=== PATIENT | male | born 1955 | race Caucasian/White ===

== ENCOUNTER 2018-10-25 13:35 | Emergency (ER) | payer BC, OTHER ==
[2018-10-25 16:55] LABS: Absolute Lymphocytes (CBC) 1.8 K/uL (0.7-4.9); Absolute Monocytes 0.8 K/uL (0.1-1.3); Absolute Neutrophil 4.5 K/uL (1.8-8.0); Basophils % 0.6 % (0-1.3); Hematocrit 43.2 % (39.6-49.0); Lymphocytes % 24.3 % (15.3-44.8); MPV 9.8 fL (7.6-11.3); Monocytes % 10.4 % (3.3-12.3); RBC Red Blood Cell Count 4.89 M/uL (4.33-5.43)
[2018-10-25] MEDS ORDERED: KETOROLAC 30 MG/ML INJ ONE (17:18)
[2018-10-25 17:53] LABS: Albumin 3.9 g/dL (3.4-5.0); Bilirubin Direct 0.2 mg/dL (0-0.2); Bilirubin Total 0.6 mg/dL (0.2-1.0); Potassium 4.4 mmol/L (3.5-5.1)
--- NOTE | 2018-10-25 18:22 | RAD REPORT ---
EXAM DESCRIPTION: CT - Abdomen Pelvis W Contrast - 10/25/2018 6:04 pm CLINICAL HISTORY: Abdominal pain/right groin pain COMPARISON: none. TECHNIQUE: Computed axial tomography of the abdomen pelvis was obtained. 100 cc Isovue-300 was admin istered intravenously. Oral contrast was not requested which limits evaluation of bowel. All CT scans are performed using dose optimization technique as appropriate and may include automated exposure control or mA/KV adjustment according to patient size. FINDINGS: The liver, spleen, pancreas, adrenal and right kidney appear unremarkable. 6 millimeter nonobstructing left renal calculus is present. Gallstones are seen without gallbladder wall thickening. There is no evidence of diverticulitis. The appendix is normal. The prostate gland is moderately to markedly enlarged. Small bilateral inguinal hernias are suspected. Significant inguinal lymphadenopathy is not present IMPRESSION: Cholelithiasis without evidence of cholecystitis Nonobstructing left renal calculus [id number] prostatic hypertrophy. Small bilateral inguinal hernias are suspected
--- NOTE | 2018-10-25 18:44 | ER ---
Nurse's Notes [facility] Name: Jamar Pedersen Age: 63 yrs Sex: Male : 1955 Arrival Date: 10/25/2018 Time: 13:39 Bed 26 Private MD: Jamar Stevens T Diagnosis: Bilateral inguinal hernia, without obstruction or gangrene Presentation: 10/25 13:48 Presenting complaint: Patient states: Right thigh pain and swelling to the right groin, sg was seen by the PCP for evaluation of Hernia, diagnosed with inflammed lymph nodes, reports the medications have done nothing, reports swelling continues and pain continues. Transition of care: patient was not received from another setting of care. Onset of symptoms was October 25, 2018 at 13:49. Risk Assessment: Do you want to hurt yourself or someone else? Patient reports no desire to harm self or others. Initial Sepsis Screen: Does the patient meet any 2 criteria? No. Patient's initial sepsis screen is negative. Does the patient have a suspected source of infection? No. Patient's initial sepsis screen is negative. Care prior to arrival: None. 13:48 Method Of Arrival: Ambulatory sg 13:48 Acuity: ISABEL 3 sg Historical: - Allergies: 13:53 Codeine; sg - Home Meds: 13:53 losartan oral oral [Active]; meloxicam 15 mg oral tab 1 tab once daily [Active]; sg doxycycline hyclate 100 mg Oral cap 1 cap every 12 hours [Active]; - PMHx: 13:53 Hypertension; BPH; sg - Immunization history:: Adult Immunizations up to date. - Social history:: Smoking status: Patient/guardian denies using tobacco. - Ebola Screening: : Patient negative for fever greater than or equal to 101.5 degrees Fahrenheit, and additional compatible Ebola Virus Disease symptoms Patient denies exposure to infectious person Patient denies travel to an Ebola-affected area in the 21 days before illness onset No symptoms or risks identified at this time. Screenin:44 Abuse screen: Denies threats or abuse. Nutritional screening: No deficits noted. tl3 Tuberculosis screening: No symptoms or risk factors identified. Fall Risk None identified. Assessment: 15:40 Reassessment: Patient and/or family updated on plan of care and expected duration. Pain hb level reassessed. Patient is alert, oriented x 3, equal unlabored respirations, skin warm/dry/pink. Patient states symptoms have not improved. 15:44 General: Appears uncomfortable, well groomed, well developed, well nourished, Behavior tl3 is calm, cooperative, appropriate for age. Pain: Complains of pain in right groin. Neuro: Level of Consciousness is awake, alert, obeys commands, Oriented to person, place, time, situation, Appropriate for age. Cardiovascular: Patient's skin is warm and dry. Respiratory: Airway is patent Respiratory effort is even, unlabored, Respiratory pattern is regular, symmetrical. GI: No signs and/or symptoms were reported involving the gastrointestinal system. GI: No signs and/or symptoms were reported involving the gastrointestinal system. GI: No signs and/or symptoms were reported involving the gastrointestinal system. 17:25 Reassessment: Patient appears in no apparent distress at this time. Patient and/or ca1 family updated on plan of care and expected duration. Pain level reassessed. Patient is alert, oriented x 3, equal unlabored respirations, skin warm/dry/pink. 18:30 Reassessment: Patient appears in no apparent distress at this time. Patient is alert, ca1 oriented x 3, equal unlabored respirations, skin warm/dry/pink. DIANA Davis at bedside. Vital Signs: 13:50 BP 180 / 94; Pulse 71; Resp 17; Temp 98.1; Pulse Ox 100% on R/A; Weight 111.13 kg; Pain sg 10/10; 17:00 BP 160 / 97; Pulse 62; Resp 18; Pulse Ox 97% on R/A; ca1 18:30 BP 162 / 88; Pulse 63; Resp 18; Pulse Ox 96% on R/A; ca1 ED Course: 13:39 Patient arrived in ED. sb2 13:39 Jamar Stevens MD is Private Physician. sb2 13:49 Triage completed. sg 13:49 Arm band placed on. sg 15:42 Evan Campos PA is PHCP. cp 15:43 Jessica Johnson, EDGAR is Primary Nurse. tl3 15:43 Artur Hassan MD is Attending Physician. cp 15:44 Patient has correct armband on for positive identification. Bed in low position. Call tl3 light in reach. Side rails up X 1. Adult w/ patient. 15:44 No provider procedures requiring assistance completed. tl3 16:43 Inserted saline lock: 20 gauge in left antecubital area, using aseptic technique. lt1 16:43 Initial lab(s) drawn, by me, sent to lab. lt1 18:07 CT Abd/Pelvis - W/Contrast: no oral contrast In Process Unspecified. EDMS 18:43 Madi Duran MD is Referral Physician. cp 19:16 IV discontinued, intact, bleeding controlled, No redness/swelling at site. Pressure ca1 dressing applied. Administered Medications: 17:10 Drug: TORadol 30 mg Route: IVP; Site: left antecubital; ca1 18:44 Follow up: Response: No adverse reaction; Pain is decreased ca1 Outcome: 18:44 Discharge ordered by MD. cp 19:15 Discharged to home ambulatory, with family. ca1 19:15 Condition: stable 19:15 Discharge instructions given to patient, Instructed on discharge instructions, follow up and referral plans. medication usage, Demonstrated understanding of instructions, follow-up care, medications, Prescriptions given X 2. 19:16 Patient left the ED. ca1 Signatures: Dispatcher [employer] EDMS Ha Dietz, RN RN sg Evan Campos, PA PA cp Sonya Alan, RN RN Ana Parra sb2 Jessica Johnson RN RN tl3 Judith Cota RN RN ca1 Ivett Heredia lt1
--- NOTE | 2018-10-25 18:44 | EDPHYS ---
Physician Documentation [facility] Name: Jamar Pedersen Age: 63 yrs Sex: Male : 1955 Arrival Date: 10/25/2018 Time: 13:39 Bed 26 Private MD: Jamar Stevens T ED Physician Artur Hassan HPI: 10/25 16:20 This 63 yrs old Male presents to ER via Ambulatory with complaints of Groin cp Pain, Thigh Pain. 16:20 The patient presents with pain, that is acute, tenderness. The complaints affect the cp right groin and right inguinal. 16:20 Context: resulted from an unknown cause. cp 16:20 Onset: The symptoms/episode began/occurred gradually. The patient has been recently cp seen by a physician: the patient's primary care provider, with similar presenting complaints, was given a prescription for pain medications, was given a prescription for antibiotics. 16:20 Associated signs and symptoms: Pertinent negatives fever, urinary symptoms, testicular cp pain. Historical: - Allergies: 13:53 Codeine; sg - Home Meds: 13:53 losartan oral oral [Active]; meloxicam 15 mg oral tab 1 tab once daily [Active]; sg doxycycline hyclate 100 mg Oral cap 1 cap every 12 hours [Active]; - PMHx: 13:53 Hypertension; BPH; sg - Immunization history:: Adult Immunizations up to date. - Social history:: Smoking status: Patient/guardian denies using tobacco. - Ebola Screening: : Patient negative for fever greater than or equal to 101.5 degrees Fahrenheit, and additional compatible Ebola Virus Disease symptoms Patient denies exposure to infectious person Patient denies travel to an Ebola-affected area in the 21 days before illness onset No symptoms or risks identified at this time. ROS: 16:25 Constitutional: Negative for body aches, chills, fever, poor PO intake. cp 16:25 Eyes: Negative for injury, pain, redness, and discharge. cp 16:25 Cardiovascular: Negative for chest pain, edema, palpitations. 16:25 Respiratory: Negative for cough, shortness of breath, wheezing. 16:25 Abdomen/GI: Negative for abdominal pain, nausea, vomiting, and diarrhea, constipation, black/tarry stool, rectal pain, rectal bleeding. 16:25 : Positive for pain right groin and inguinal area, Negative for hematuria, flank pain, penile pain, testicular pain 16:25 Skin: Negative for cellulitis, rash. 16:25 Neuro: Negative for altered mental status, headache, weakness. 16:25 All other systems are negative. Exam: 16:33 Constitutional: The patient appears in no acute distress, alert, awake, non-toxic, well cp developed, well nourished. 16:33 Head/Face: Normocephalic, atraumatic. cp 16:33 Eyes: Periorbital structures: appear normal, Conjunctiva: normal, no exudate, no injection, Sclera: no appreciated abnormality, Lids and lashes: appear normal, bilaterally. 16:33 ENT: External ear(s): are unremarkable, Nose: is normal, Mouth: Lips: moist, Oral mucosa: pink and intact, moist, Posterior pharynx: Airway: no evidence of obstruction, patent. 16:33 Chest/axilla: Inspection: normal, Palpation: is normal, no crepitus, no tenderness. 16:33 Cardiovascular: Rate: normal, Rhythm: regular. 16:33 Respiratory: the patient does not display signs of respiratory distress, Respirations: normal, no use of accessory muscles, no retractions, no splinting, no tachypnea, labored breathing, is not present, Breath sounds: are clear throughout, no decreased breath sounds, no stridor, no wheezing. 16:33 Abdomen/GI: Inspection: obese Bowel sounds: active, all quadrants, Palpation: abdomen is soft and non-tender, in all quadrants, Hernia: noted in the right inguinal area, tenderness, that is mild. 16:33 Back: pain, is absent, ROM is normal. 16:33 : Male external genitalia: swelling, is not appreciated, tenderness, is not appreciated. 16:33 Skin: cellulitis, is not appreciated, no rash present. 16:33 Neuro: Orientation: to person, place \T\ time. Mentation: is normal, Cerebellar function: is grossly normal, Motor: moves all fours, strength is normal, Sensation: is normal. Vital Signs: 13:50 BP 180 / 94; Pulse 71; Resp 17; Temp 98.1; Pulse Ox 100% on R/A; Weight 111.13 kg; Pain sg 10/10; 17:00 BP 160 / 97; Pulse 62; Resp 18; Pulse Ox 97% on R/A; ca1 18:30 BP 162 / 88; Pulse 63; Resp 18; Pulse Ox 96% on R/A; ca1 MDM: 15:43 Patient medically screened. cp 17:00 Differential diagnosis: UTI, incarcerated hernia, appendicitis, epididymitis. cp 18:42 Data reviewed: vital signs, nurses notes, lab test result(s), radiologic studies, CT cp scan. 18:42 Counseling: I had a detailed discussion with the patient and/or guardian regarding: the cp historical points, exam findings, and any diagnostic results supporting the discharge/admit diagnosis, lab results, radiology results, the need for outpatient follow up, a general surgeon. Response to treatment: the patient's symptoms have mildly improved after treatment, and as a result, I will discharge patient. 10/25 16:17 Order name: Basic Metabolic Panel; Complete Time: 18:30 cp 10/25 18:30 Interpretation: Normal except: CL 111; BUN 20; GFR 81. cp 10/25 16:17 Order name: CBC with Diff; Complete Time: 17:31 cp 10/25 16:17 Order name: Creatinine for Radiology; Complete Time: 17:31 cp 10/25 16:17 Order name: Hepatic Function; Complete Time: 18:30 cp 10/25 16:17 Order name: Lipase; Complete Time: 18:30 cp 10/25 16:17 Order name: Urine Microscopic Only cp 10/25 16:17 Order name: IV Saline Lock; Complete Time: 17:24 cp 10/25 16:17 Order name: Labs collected and sent; Complete Time: 17:24 cp 10/25 16:28 Order name: CT Abd/Pelvis - W/Contrast: no oral contrast; Complete Time: 18:30 cp 10/25 16:28 Order name: Urine Dipstick-Ancillary (obtain specimen); Complete Time: 18:44 cp 10/25 16:57 Order name: Labs - recollect needed; Complete Time: 17:23 bd 10/25 18:36 Order name: Urine Dipstick--Ancillary (enter results) bd Administered Medications: 17:10 Drug: TORadol 30 mg Route: IVP; Site: left antecubital; ca1 18:44 Follow up: Response: No adverse reaction; Pain is decreased ca1 Disposition: 10/26 12:38 Co-signature as Attending Physician, Artur Hassan MD. rn Disposition: 10/25/18 18:44 Discharged to Home. Impression: Bilateral inguinal hernia, without obstruction or gangrene. - Condition is Stable. - Discharge Instructions: Inguinal Hernia, Adult. - Prescriptions for Ultracet 37.5- 325 mg Oral Tablet - take 1 tablet by ORAL route every 6 hours As needed - for up to 5 days; do not exceed 8 tablets per day.. no driving or operating heavy machinery while taking medication; 20 tablet. Cyclobenzaprine 10 mg Oral Tablet - take 1 tablet by ORAL route every 8 hours As needed no driving while taking medication; 20 tablet. - Medication Reconciliation Form, Thank You Letter, Antibiotic Education, Prescription Opioid Use form. - Follow up: Madi Duran MD; When: 1 - 2 days; Reason: bilateral inguinal hernias. - Problem is new. - Symptoms have improved. Signatures: Dispatcher [employer] EDMS Mariza Montoya Steven, RN RN Artur Kearney MD MD rn Evan Campos PA PA cp Judith Cota RN RN ca1 Corrections: (The following items were deleted from the chart) 10/25 19:16 18:44 10/25/2018 18:44 Discharged to Home. Impression: Bilateral inguinal hernia, ca1 without obstruction or gangrene. Condition is Stable. Forms are Medication Reconciliation Form, Thank You Letter, Antibiotic Education, Prescription Opioid Use. Follow up: Madi Duran; When: 1 - 2 days; Reason: bilateral inguinal hernias. Problem is new. Symptoms have improved. cp
[2018-10-25 18:51] LABS: Urine Bacteria <20 /HPF (NONE SEEN); Urine Culture Reflex Order NOT NEEDED; Urine Mucus 1+ /HPF (NONE SEEN); Urine RBC <5 /HPF (NONE SEEN)
[2018-10-25 21:24] LABS: Urine Blood NEGATIVE (NEG); Urine Glucose NEGATIVE (NEG); Urine Protein NEGATIVE (NEG); Urine Specific Gravity 1.025 (1.005-1.030); Urine pH 5.5 (5.0-7.0)
== END 2018-10-25 19:16 | disposition home or self-care (01) ==
LOC: ER 13:35
DX: K40.20 Bilateral inguinal hernia, without obstruction or gangrene, not specified as recurrent (principal); I10 Essential (primary) hypertension; Z88.5 Allergy status to narcotic agent
CPT/HCPCS: 36415; 74177; 80048; 80076; 81003; 81015; 83690; 85025; 96374; 99284; Q9967

== ENCOUNTER 2018-11-16 09:24 | Day surgery (SDC) | payer OTHER ==
--- NOTE | 2018-11-04 16:55 | EKG ---
Test Date: 2018-11-04 Test Time: 16:03:08 Lpn Home Health: [facility] MEASUREMENT RESULTS: Intervals: Rate: 72 HI: 190 QRSD: 146 QT: 404 QTc: 442 [place]: P: 16 HI: 190 QRS: 4 T: 0 INTERPRETIVE STATEMENTS: Normal sinus rhythm Right bundle branch block Inferior infarct, age undetermined Abnormal ECG No previous ECG available for comparison Electronically Signed On 11-04-18 16:54:36 SCRAPER LOADER OPERATOR by Salvador Walden
[2018-11-04 17:17] LABS: Absolute Monocytes 1.1 K/uL (0.1-1.3); Absolute Neutrophil 4.8 K/uL (1.8-8.0); Basophils % 0.3 % (0-1.3); Eosinophils % 4.4 % (0-4.4); Hematocrit 43.5 % (39.6-49.0); Lymphocytes % 24.3 % (15.3-44.8); MPV 10.4 fL (7.6-11.3); Monocytes % 13.1 % (3.3-12.3); RBC Red Blood Cell Count 4.92 M/uL (4.33-5.43)
[2018-11-04 17:18] LABS: Urine Appearance CLEAR; Urine Bilirubin NEGATIVE (NEG); Urine Blood NEGATIVE (NEG); Urine Color YELLOW; Urine Glucose NEGATIVE (NEG); Urine Protein NEGATIVE (NEG); Urine Specific Gravity 1.015 (1.005-1.030); Urine pH 5.5 (5.0-7.0)
[2018-11-04 17:19] LABS: Protime INR 1.11
[2018-11-04 17:29] LABS: Potassium 4.1 mmol/L (3.5-5.1)
[2018-11-04 17:30] LABS: Urine Microscopic Reflex ORDER UMIC
--- NOTE | 2018-11-04 17:38 | RAD REPORT ---
EXAM DESCRIPTION: Marnada Briggs (2 Views)11/04/2018 4:22 pm CLINICAL HISTORY: Preop COMPARISON: 2015 FINDINGS: The lungs appear clear of acute infiltrate. The heart is normal size IMPRESSION: No acute abnormalities displayed
[2018-11-04 17:50] LABS: Urine Bacteria <20 /HPF (NONE SEEN); Urine Culture Reflex Order NOT NEEDED; Urine Mucus MOD /HPF (NONE SEEN)
[2018-11-16] MEDS ORDERED: Ringers Lactate 1,000 ML IV ONE ×2 (10:11→12:49)
[2018-11-16] MEDS ORDERED: GENTAMICIN 100 MG/100 ML BAG 100 ML IV ONE (10:11)
[2018-11-16] MEDS ORDERED: CEFAZOLIN/SWI 1gm 1 GM/10 ML SYR ONE (10:15)
[2018-11-16] MEDS ORDERED: BUPIVACAINE 0.5% PF 10 ML VIAL ONE ×2 (10:19→11:33)
[2018-11-16] MEDS ORDERED: PROPOFOL 200 MG/20 ML VIAL IV ONE (10:26)
[2018-11-16] MEDS ORDERED: MIDAZOLAM HCL 2 MG/2 ML INJ ONE ×2 (10:26→14:12)
[2018-11-16] MEDS ORDERED: FENTANYL CITR 100 MCG/2 ML ONE ×2 (10:26→11:52)
[2018-11-16] MEDS ORDERED: LIDOCAINE 2% MPF 5 ML VIAL ONE (10:27)
[2018-11-16] MEDS ORDERED: ONDANSETRON 4 MG/2 ML VIAL ONE (10:27)
[2018-11-16] MEDS ORDERED: ROCURONIUM 50 MG/5 ML VIAL IV ONE ×2 (10:27→11:33)
[2018-11-16] MEDS ORDERED: GLYCOPYRROLATE 0.2 MG/ML SYR ONE (12:58)
[2018-11-16] MEDS ORDERED: NEOSTIGMINE 1 MG/ML -10 ML VIAL ONE (12:58)
[2018-11-16] MEDS: HYDROMORPHONE HCL 2 MG/ML inj ONE ×4 (13:07→13:32)
[2018-11-16] MEDS: LABETALOL 20 MG/4ML SYRINGE IV ONE ×2 (13:17→13:35)
[2018-11-16] MEDS: HYDROMORPHONE HCL 1 MG/ML INJ ONE ×2 (13:43→13:56)
[2018-11-16] MEDS ORDERED: HYDRALAZINE HCL 20 MG/ML VIAL ONE (14:25)
[2018-11-16] MEDS ORDERED: HYDROCODONE/APAP 7.5/325 MG TAB ONE (15:16)
--- NOTE | 2018-11-16 23:02 | OP ---
Date of Procedure: 11/16/2018 Surgeon: Ameya Avila MD Preoperative Diagnosis: Bilateral inguinal hernia. Postoperative Diagnosis: Bilateral inguinal hernia. Procedure: Repair of bilateral inguinal hernias and excision of right groin mass. Estimated Blood Loss: Minimal. Specimen: Cord lipoma. Findings: Direct hernia on both sides. Anesthesia: General. Complications: None. Disposition: The patient tolerated the procedure in stable condition. Dr. Rey is going to proceed with his procedure. Procedure In Detail: The patient was brought to the OR and placed in supine position. General anest hesia was begun. The patient was prepped and draped in usual sterile fashion. Marcaine 0.5% was inf iltrated in a field block fashion. A 15 blade was used to make a 4 cm oblique incision between the r ight pubic tubercle and the anterior iliac superior spine. Subcutaneous tissue was divided. Raine' s fascia was identified and divided. The aponeurosis was identified and mobilized inferiorly, and th ere was an enlarged lymph node, which was biopsied. The base of the lymph node was divided between c lamps and tied with 3-0 silk ties, and there was a large lymph node that was sent to Pathology. Subs equently, the aponeurosis was opened through the external ring, and ilioinguinal nerve was identified and retracted out of the field of dissection. Cord was mobilized and skeletonized. A large cord li maricarmen was present. High ligation with 3-0 silk done. No indirect sac seen. The floor of the inguina l canal was very weak. Subsequently, Marlex mesh plug was placed in the internal ring and secured wi th VersaTack stapler. Onlay mesh was placed on the inguinal floor, secured medially to the pubic tub ercle, inferiorly to the shelving edge, superiorly to the conjoined tendon, laterally to each other, and then cord structures. Ilioinguinal nerve was placed back in anatomical location. A 2-0 Prolene was used to close the aponeurosis, 3-0 chromic was used to reapproximate the Raine's fascia, and sta ples were used to close the skin. The exact same hernia surgery took place on the left side with the same findings except there was no enlarged lymph node. Subsequently, the patient had sterile dressi ng applied, and then Dr. Candido will proceed with his procedure following which the patient will be ta lee to recovery, and then if stable, will be discharged to home. Disposition: Home. Condition: Stable. Discharge Instructions: Resume home medications and diet. Activity as tolerated. No heavy lifting. Remove outer dressing in 2 days. Shower. Keep wound clean and dry. Scrotal support and ice pack. Ultracet 1 tablet p.o. q.4 p.r.n. pain. Follow up with me in 1 week. . /CRISSYL Voice ID: [id number] Report ID: [id number]
== END 2018-11-16 16:31 | disposition home or self-care (01) ==
LOC: OR 09:24
PROVIDERS: ATTEND Urology
PROC: 07BH0ZX Excision of Right Inguinal Lymphatic, Open Approach, Diagnostic (ICD-10-PCS; 2018-11-16)
PROC: 0YUA0JZ Supplement Bilateral Inguinal Region with Synthetic Substitute, Open Approach (ICD-10-PCS; principal; 2018-11-16 11:00)
PROC: 0VT08ZZ Resection of Prostate, Via Natural or Artificial Opening Endoscopic (ICD-10-PCS; 2018-11-16 11:00)
DX: K40.20 Bilateral inguinal hernia, without obstruction or gangrene, not specified as recurrent (principal); N40.1 Benign prostatic hyperplasia with lower urinary tract symptoms; R39.12 Poor urinary stream; I10 Essential (primary) hypertension; G47.33 Obstructive sleep apnea (adult) (pediatric); K21.9 Gastro-esophageal reflux disease without esophagitis; E66.9 Obesity, unspecified; Z68.34 Body mass index [BMI] 34.0-34.9, adult; Z88.6 Allergy status to analgesic agent; Z80.1 Family history of malignant neoplasm of trachea, bronchus and lung; Z80.0 Family history of malignant neoplasm of digestive organs; Z82.49 Family history of ischemic heart disease and other diseases of the circulatory system
CPT/HCPCS: 36415; 71046; 80048; 81003; 81015; 85025; 85610; 85730; 87086; 87088; 88302; 88304; 88305; 93005; J0360; J0690; J1170; J1580; J2250; J2405; J2704; J2710; J3010

== ENCOUNTER 2021-01-06 13:15 | Inpatient (IN) | payer OTHER, SELFPAY ==
--- NOTE | 2021-01-06 14:31 | RAD REPORT ---
EXAM DESCRIPTION: CT - Head Brain Wo Cont - 01/06/2021 2:10 pm CLINICAL HISTORY: Numbness COMPARISON: None TECHNIQUE: Computed axial tomography of the head was obtained. IV contrast was not requested. All CT scans are performed using dose optimization technique as appropriate and may include automated exposure control or mA/KV adjustment according to patient size. FINDINGS: An intracranial bleed is not seen . The ventricles are normal in caliber. No extra-axial fluid collection is noted. A 7.5 centimeter low-density area present within the right occipital/right parietal lobes. This has t he appearance of an acute infarction. Small low-density area within the right frontal lobe probably a cute infarct. A 1.4 centimeter low-density area right thalamus has more of the appearance of being chronic than acu te. Fluid within the sinuses/ mastoids is not seen. IMPRESSION: Moderate to large right cerebral infarction probably acute
--- NOTE | 2021-01-06 14:35 | RAD REPORT ---
EXAM DESCRIPTION: Maranda Single View01/06/2021 2:16 pm CLINICAL HISTORY: Chest pain COMPARISON: 2019 FINDINGS: The lungs appear clear of acute infiltrate. The heart is normal size IMPRESSION: No acute abnormalities displayed
[2021-01-06 15:04] LABS: Protime INR 1.2
[2021-01-06 15:06] LABS: Absolute Lymphocytes (CBC) 1.6 K/uL (0.7-4.9); Basophils % 0.7 % (0-1.3); Hematocrit 38.9 % (39.6-49.0); Lymphocytes % 17.7 % (15.3-44.8)
[2021-01-06 15:20] LABS: AST/SGOT 23 U/L (15-37); BUN Blood Urea Nitrogen 21 mg/dL (7-18); Bicarbonate 26 mmol/L (21-32); Glucose Level 95 mg/dL (74-106); Potassium 3.7 mmol/L (3.5-5.1); Sodium Level 141 mmol/L (136-145)
[2021-01-06 15:21] LABS: ALT/SGPT 35 U/L (12-78); Albumin 3.9 g/dL (3.4-5.0); Alkaline Phosphatase 62 U/L (45-117); Bilirubin Direct 0.2 mg/dL (0-0.2); Bilirubin Total 0.7 mg/dL (0.2-1.0); Magnesium 1.9 mg/dL (1.8-2.4); NT PRO-BNP 85 pg/mL (<125); Protein, Total 7.2 g/dL (6.4-8.2); Troponin (Emerg Dept Use Only) < 0.02 ng/mL (0.0-0.045)
[2021-01-06] MEDS ORDERED: ASPIRIN 325 MG TAB ONE (15:55)
[2021-01-06] MEDS ORDERED: NA CHLORIDE 0.9% 50 ML ONE ×2 (15:56→16:15)
[2021-01-06] MEDS ORDERED: FOLIC ACID 5 MG/ML VIAL ONE (15:56)
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
--- NOTE | 2021-01-06 16:05 | ER ---
Nurse's Notes [facility] Name: Jamar Pedersen Age: 65 yrs Sex: Male : 1955 Arrival Date: 01/06/2021 Time: 13:19 Bed 20 Private MD: Diagnosis: Cerebral infarction Presentation: 01/06 13:39 Chief complaint: Patient states: "I had 2 occasions of chest pains that blacked out my jd3 vision yesterday and both my hands are feeling numb.". Coronavirus screen: At this time, the client does not indicate any symptoms associated with coronavirus-19. Ebola Screen: Patient negative for fever greater than or equal to 101.5 degrees Fahrenheit, and additional compatible Ebola Virus Disease symptoms. Initial Sepsis Screen: Does the patient meet any 2 criteria? No. Patient's initial sepsis screen is negative. Does the patient have a suspected source of infection? No. Patient's initial sepsis screen is negative. Risk Assessment: Do you want to hurt yourself or someone else? Patient reports no desire to harm self or others. Onset of symptoms was January 05, 2021. 13:39 Method Of Arrival: Ambulatory jd3 13:39 Acuity: ISABEL 2 jd3 Triage Assessment: 13:45 Headache History: The patient has had previous headaches and this one is more severe bp than previous episodes. General: Appears distressed, uncomfortable, Behavior is cooperative, appropriate for age, anxious. Pain: Complains of pain in head Pain currently is 6 out of 10 on a pain scale. Pain began 2-3 days ago. Also complains of LEFT SIDED WEAKNESS. EENT: No deficits noted. Neuro: Level of Consciousness is awake, alert, obeys commands, Oriented to Appropriate for age Diabetes Physician are weak on left Speech is normal. Cardiovascular: Rhythm is sinus rhythm. Respiratory: No deficits noted. GI: No signs and/or symptoms were reported involving the gastrointestinal system. : No signs and/or symptoms were reported regarding the genitourinary system. Derm: No deficits noted. Musculoskeletal: Range of motion: intact in all extremities. Historical: - Allergies: 13:42 Codeine; jd3 - PMHx: 13:42 BPH; Hypertension; jd3 - PSHx: 13:42 prostate; Hernia repair; jd3 - Immunization history:: Adult Immunizations up to date. - Social history:: Smoking status: Patient denies any tobacco usage or history of. Screenin:45 Abuse screen: Denies threats or abuse. Denies injuries from another. Nutritional bp screening: No deficits noted. Tuberculosis screening: No symptoms or risk factors identified. Fall Risk None identified. Assessment: 13:45 General: SEE TRIAGE NOTE. bp 15:00 Reassessment: No changes from previously documented assessment. Patient and/or family bp updated on plan of care and expected duration. Pain level reassessed. Patient is alert, oriented x 3, equal unlabored respirations, skin warm/dry/pink. Pain: Denies pain. 16:00 Reassessment: No changes from previously documented assessment. Patient and/or family bp updated on plan of care and expected duration. Pain level reassessed. Patient is alert, oriented x 3, equal unlabored respirations, skin warm/dry/pink. NIHSS REMAINS 1. 17:00 Reassessment: No changes from previously documented assessment. Patient and/or family bp updated on plan of care and expected duration. Pain level reassessed. Patient is alert, oriented x 3, equal unlabored respirations, skin warm/dry/pink. 18:00 Neuro: Level of Consciousness is awake, alert, obeys commands, Oriented to Appropriate bp for age Weakness. 19:36 Reassessment: Ultrasound at bedside. lp1 Vital Signs: 13:42 BP 165 / 93; Pulse 81; Resp 17 S; Temp 97.8(O); Pulse Ox 97% on R/A; Weight 108.86 kg jd3 (R); Height 5 ft. 7 in. (170.18 cm) (R); Pain 0/10; 15:00 BP 129 / 76; Pulse 71; Resp 17; Pulse Ox 95% ; bp 16:00 BP 144 / 78; Pulse 69; Resp 17; Pulse Ox 94% ; bp 17:00 BP 124 / 87; Pulse 70; Resp 17; Pulse Ox 95% ; bp 18:00 BP 150 / 86; Pulse 68; Resp 17; Pulse Ox 98% ; bp 13:42 Body Mass Index 37.59 (108.86 kg, 170.18 cm) jd3 NIH Stroke Scale Scores: 13:45 NIHSS Score: 1 bp 13:50 NIHSS Score: 1 pm1 16:00 NIHSS Score: 1 bp ED Course: 13:19 Patient arrived in ED. as 13:27 Cedrick Diallo, EDGAR is Primary Nurse. bp 13:32 Jasiel Peralta NP is PHCP. pm1 13:32 Evan Langley MD is Attending Physician. pm1 13:41 Triage completed. jd3 13:42 Arm band placed on. jd3 13:45 Patient has correct armband on for positive identification. Bed in low position. Call bp light in reach. Side rails up X2. Adult w/ patient. 13:45 Inserted saline lock: 20 gauge in right antecubital area, using aseptic technique. bp 14:10 CT Head Brain wo Cont In Process Unspecified. EDMS 14:16 XRAY Chest (1 view) In Process Unspecified. EDMS 16:04 Ten Ponce MD is Hospitalizing Provider. pm1 19:15 Primary Nurse role handed off by Cedrick Diallo RN mw2 19:17 No provider procedures requiring assistance completed. Patient admitted, IV remains in ea place. 19:36 Attending Physician role handed off by Evan Langley MD lp1 Administered Medications: 15:20 Drug: Aspirin 325 mg Route: PO; bp 15:51 Follow up: Response: No adverse reaction bp 15:20 Drug: foLIC Acid 1 mg Route: IVPB; Site: right antecubital; bp 16:59 Follow up: IV Status: Completed infusion; IV Intake: 50ml bp 15:53 CANCELLED (Physician Discretion): Atorvastatin 40 mg PO once pm1 16:00 Drug: Thiamine 100 mg Route: IV; Rate: calculated rate; Site: right antecubital; bp 16:59 Follow up: IV Status: Completed infusion; IV Intake: 50ml bp 16:00 Drug: PlaVIX (clopidogrel) 75 mg Route: PO; bp 16:59 Follow up: Response: No adverse reaction bp 16:20 Drug: atorvastatin 80 mg Route: PO; bp 17:00 Follow up: Response: No adverse reaction bp Intake: 16:59 IV: 50ml; Total: 50ml. bp 16:59 IV: 50ml; Total: 100ml. bp Outcome: 16:04 Decision to Hospitalize by Provider. pm1 19:17 Instructed on the need for admit. ea 19:31 Admitted to Med/surg accompanied by tech, room 216, Report called to Receiving nurse ea 19:31 Condition: stable 19:35 Patient left the ED. lp1 19:49 Patient left the ED. lp1 NIH Stroke Scale - NIH Stroke Score Date: 01/06/2021 Time: 13:45 Total Score = 1 1a. Level of Consciousness (LOC) - 0(Alert) 1b. Level of Consciousness (LOC) (Year \\T\\ Age) - 0(Both) 1c. LOC Commands (Open \\T\\ Closes Eyes/Insulation Inspector) - 0(Both) 2. Best Gaze (Lateral Gaze Paresis) - 0(Normal) 3. Visual Field Loss - 0(No visual loss) 4. Facial Palsy - 0(Normal) 5a. Left Arm: Motor (10-second hold) - 0(No drift) 5b. Right Arm: Motor (10-second hold) - 0(No drift) 6a. Left Leg: Motor (5-second hold - always test supine) - 0(No drift) 6b. Right Leg: Motor (5-second hold - always test supine) - 0(No drift) 7. Limb Ataxia (finger/nose \\T\\ heel/crane - test with eyes open) - 1(Present in one limb) 8. Sensory Loss (pinprick arms/legs/face) - 0(Normal) 9. Best Language: Aphasia (description/naming/reading) - 0(No aphasia) 10. Dysarthria (speech clarity - read or repeat words) - 0(Normal) 11. Extinction and Inattention (visual/tactile/auditory/spatial/personal) - 0(No abnormality) Initials: bp NIH Stroke Scale - NIH Stroke Score Date: 01/06/2021 Time: 13:50 Total Score = 1 1a. Level of Consciousness (LOC) - 0(Alert) 1b. Level of Consciousness (LOC) (Year \\T\\ Age) - 0(Both) 1c. LOC Commands (Open \\T\\ Closes Eyes/Insulation Inspector) - 0(Both) 2. Best Gaze (Lateral Gaze Paresis) - 0(Normal) 3. Visual Field Loss - 0(No visual loss) 4. Facial Palsy - 0(Normal) 5a. Left Arm: Motor (10-second hold) - 0(No drift) 5b. Right Arm: Motor (10-second hold) - 0(No drift) 6a. Left Leg: Motor (5-second hold - always test supine) - 0(No drift) 6b. Right Leg: Motor (5-second hold - always test supine) - 0(No drift) 7. Limb Ataxia (finger/nose \\T\\ heel/crane - test with eyes open) - 1(Present in one limb) 8. Sensory Loss (pinprick arms/legs/face) - 0(Normal) 9. Best Language: Aphasia (description/naming/reading) - 0(No aphasia) 10. Dysarthria (speech clarity - read or repeat words) - 0(Normal) 11. Extinction and Inattention (visual/tactile/auditory/spatial/personal) - 0(No abnormality) Initials: pm1 NIH Stroke Scale - NIH Stroke Score Date: 01/06/2021 Time: 16:00 Total Score = 1 1a. Level of Consciousness (LOC) - 0(Alert) 1b. Level of Consciousness (LOC) (Year \\T\\ Age) - 0(Both) 1c. LOC Commands (Open \\T\\ Closes Eyes/Insulation Inspector) - 0(Both) 2. Best Gaze (Lateral Gaze Paresis) - 0(Normal) 3. Visual Field Loss - 0(No visual loss) 4. Facial Palsy - 0(Normal) 5a. Left Arm: Motor (10-second hold) - 0(No drift) 5b. Right Arm: Motor (10-second hold) - 0(No drift) 6a. Left Leg: Motor (5-second hold - always test supine) - 0(No drift) 6b. Right Leg: Motor (5-second hold - always test supine) - 0(No drift) 7. Limb Ataxia (finger/nose \\T\\ heel/crane - test with eyes open) - 1(Present in one limb) 8. Sensory Loss (pinprick arms/legs/face) - 0(Normal) 9. Best Language: Aphasia (description/naming/reading) - 0(No aphasia) 10. Dysarthria (speech clarity - read or repeat words) - 0(Normal) 11. Extinction and Inattention (visual/tactile/auditory/spatial/personal) - 0(No abnormality) Initials: bp Signatures: Dispatcher [employer] Marisel Fink Laura, RN RN lp1 Jasiel Peralta, TK FACILITY OPERATIONS MANAGER pm1 Meka Newton RN RN ea Davies, Jonathon, RN RN jd3 Peltier, Brian, RN RN bp [place] MyKena mw2 Corrections: (The following items were deleted from the chart) 18:05 16:00 Reassessment: No changes from previously documented assessment. Patient bp and/or family updated on plan of care and expected duration. Pain level reassessed. Patient is alert, oriented x 3, equal unlabored respirations, skin warm/dry/pink. bp
[2021-01-06] MEDS ORDERED: CLOPIDOGREL 75 MG TABLET ONE (16:15)
[2021-01-06] MEDS ORDERED: THIAMINE 200 MG/2 ML INJ ONE (16:15)
--- NOTE | 2021-01-06 16:23 | P.HP ---
Certification for Inpatient With expected LOS: >2 Midnights Practitioner: I am a practitioner with admitting privileges, knowledge of patient current condition, hospital course, and medical plan of care. Services: Services provided to patient in accordance with Admission requirements found in Title 42 Section 412.3 of the Code of Federal Regulations Patient History Date of Service: 01/06/21 Reason for admission: CVA, left sided numbness and weakness. History of Present Illness: 65 y o male pt with hx of hypertension who was evaluated in the Ed for episode of weakness and numbness in the left arm. he woke up from sleep 2 days ago with feeling of weakness and numbness in the left arm/forearm 2 days ago.prior to this episode, he had been having headache and speech issues. he also reported issues with occasions of swallow difficulty and choking. he denied overt double vision, n/v or total loss of function in any limb. CT of the brain done in the ED was concerning for acute stroke in the parieto- occipital region. he denied any with fever, chills, rigor, diarrhea, sob. he has also had issues with comprehending speech and occasionally verbalizing his thoughts. he was admitted for inpt care. Allergies codeine Adverse Reaction (Verified 11/04/18 15:47) Nausea/Vomiting Home Medications: Cyclobenzaprine HCl 10 mg PO DAILYPRN PRN 11/04/18 Losartan Potassium [Cozaar] 100 mg PO POXUM1EU 11/04/18 Tramadol HCl/Acetaminophen [Tramadol-Acetaminophn 37.5-325] 1 tab PO Q6HP PRN 11/04/18 Physical Examination - Physical Exam General: Alert, Oriented x3, Cooperative HEENT: Atraumatic, Normocephalic, PERRLA Neck: Supple Respiratory: Clear to auscultation bilaterally Cardiovascular: Regular rate/rhythm, Normal S1 S2 Gastrointestinal: Soft and benign Musculoskeletal: No clubbing, No swelling Neurological: Cranial nerves 3-12 intact, Other (reduced muscle power in the left upper limb.) - Studies Laboratory Data (last 24 hrs) 01/06/21 14:34: PT 13.8 H, INR 1.20 01/06/21 14:34: WBC 9.00, Hgb 13.1 L, Hct 38.9 L, Plt Count 232 01/06/21 14:34: Sodium 141, Potassium 3.7, BUN 21 H, Creatinine 1.22, Glucose 95, Magnesium 1.9, Total Bilirubin 0.7, AST 23, ALT 35, Alkaline Phosphatase 62 Assessment and Plan - Plan 1. CVA- pt has residual left upper extremity. we will work up further with carotid doppler US, MRI brain and lipid panel. we will have PT/OT/ST evaluate. we will also obtain echocardiogram, lipid panel, RPR. Neurology following. we will continue statin therapy and aspirin therapy as per protocol. 2.Hypertension- due to CVA, we will allow permissive hypertension until neurology evaluates him. 3.Hyperlipidemia-we will obtain lipid panel. 4. Suspected Metabolic syndrome- we will obtain HbA1c, lipid panel and check RPR as per protocol. weight loss encouraged. Discharge Plan: Home - Advance Directives Does patient have a Living Will: No Does patient have a Durable POA for Healthcare: No
[2021-01-06] MEDS ORDERED: ATORVASTATIN 20 MG TAB ONE (16:57)
[2021-01-06] MEDS: ASPIRIN EC 81 MG TAB PO SCH (18:00)
[2021-01-06] MEDS ORDERED: ATORVASTATIN 40 MG TAB PO SCH (21:00)
[2021-01-06] MEDS: NA CHLORIDE 0.9% 1,000 ML IV SCH (21:01)
--- NOTE | 2021-01-06 21:06 | RAD REPORT ---
EXAM DESCRIPTION: USCarotid Artery Bilateral01/06/2021 8:25 pm CLINICAL HISTORY: cva COMPARISON: None FINDINGS: The velocity of the right internal carotid artery equals 86 cm/sec. The right ICA/CCA rati o .6 The velocity of the left internal carotid artery equals 68 cm/sec. The left ICA/CCA ratio .8 Mild plaque is present within the carotid arteries. The vertebral arteries demonstrate antegrade flow IMPRESSION: Mild plaque within the carotid arteries without evidence of a hemodynamically significan t stenosis NASCET criteria used. Mild 0-49% stenosis Moderate 50-69% stenosis Severe 70-99% stenosis
[2021-01-06 21:20] LABS: Urine Appearance CLEAR (Clear); Urine Blood NEGATIVE (Negative); Urine Color YELLOW (Yellow); Urine Glucose NEGATIVE (Negative); Urine Protein NEGATIVE (Negative); Urine Specific Gravity >=1.030 (1.005-1.030); Urine pH 5.5 (5.0-7.0)
[2021-01-06 21:32] LABS: Urine Bilirubin NEGATIVE (Negative); Urine Microscopic Reflex NO UMIC
[2021-01-06 23:50] VITALS: BMI 34.0
[2021-01-07] MEDS: NA CHLORIDE 0.9% 1,000 ML IV SCH ×2 (03:00→06:26)
[2021-01-07] MEDS ORDERED: ACETAMINOPHEN 500 MG TAB PO PRN (03:24)
[2021-01-07] MEDS ORDERED: ACETAMINOPHEN 500 MG TAB ONE (03:43)
--- NOTE | 2021-01-07 07:53 | EKG ---
Test Date: 2021-01-06 Test Time: 15:18:36 [employer] Recorder: ENRIKE MEASUREMENT RESULTS: Intervals: Rate: 65 WY: 188 QRSD: 142 QT: 406 QTc: 422 [place]: P: 14 WY: 188 QRS: -15 T: -13 INTERPRETIVE STATEMENTS: Normal sinus rhythm Right bundle branch block Inferior infarct, age undetermined Anterior infarct, age undetermined Abnormal ECG Compared to ECG 11/04/2018 16:03:08 No significant changes Electronically Signed On 01-07-21 07:52:01 CDT by London Deleon
[2021-01-07] MEDS ORDERED: ENOXAPARIN 40 MG/0.4 ML SQ SCH (09:00)
[2021-01-07] MEDS ORDERED: FOLIC ACID 1 MG TABLET PO SCH (09:00)
[2021-01-07] MEDS ORDERED: CLOPIDOGREL 75 MG TABLET PO SCH (09:00)
--- NOTE | 2021-01-07 09:20 | RAD REPORT ---
EXAM DESCRIPTION: MRI - Brain W/Wo Cont - 01/07/2021 9:06 am CLINICAL HISTORY: CVA, right parietooccipital lobes COMPARISON: MRA Head Wo Cont dated 01/07/2021; MRA Neck W/Wo Cont dated 01/07/2021, CT head January 06 TECHNIQUE: Sagittal and axial T1-weighted images were obtained. Axial PD/heavily T2-weighted and T2- FLAIR images were obtained along with axial DWI/ADC mapping sequences. Coronal heavily T2 weighted s equence obtained. Axial and coronal post-contrast T1-weighted images were also obtained. A 20 ml Mul tihance contrast following utilized. FINDINGS: Precontrast T1 weighted imaging show serpiginous hyperintense signal in a gyriform pattern . There is large area of hypointense T1 signal in the right parietal lobe and occipital lobe. Medial aspect of each parietal and occipital lobe is spared and the inferior most aspect of the right occipi susan lobe is spared. There is corresponding hyperintense diffusion signal with diminished ADC mapping. Hyperintense T2/IR signal is present. There is a mild edema in the area of infarcted parenchyma with no significant mass effect. There is no midline shift. No other areas of acute infarction identified. Atrophy changes are mild. Ventricles are in proportion to the volume loss. Nonacute T2/IR signal abnormalities are present in the cerebral white matter and in the right thalamus near the posterior limb internal capsule. Post-contrast imaging shows enhancement of the right thalamus lesion. There is extensive enhancement along the periphery of the infarction. No globe or orbital content acute finding. No air-fluid level in the paranasal sinuses. The mastoid a ir cells are clear. No sella or supra sella abnormality seen. IMPRESSION: Subacute infarction involving substantial portions of the right parietal and occipital l obes. The parietal component is in a typical right middle cerebral artery distribution. The occipital lobe involvement extends beyond the typical middle cerebral artery distribution. This is probably no rmal anatomic variant rather than involvement of posterior circulation. There is significant enhancement on postcontrast imaging from blood brain barrier breakdown. No intra parenchymal hematoma seen. Enhancement of the right thalamus ischemic injury may indicate that this is late subacute in age. Overall mild atrophy with mild scattered cerebral chronic ischemic disease.
--- NOTE | 2021-01-07 09:22 | RAD REPORT ---
EXAM DESCRIPTION: MRI - MRA Neck W/Wo Cont - 01/07/2021 9:05 am CLINICAL HISTORY: Right parietooccipital CVA COMPARISON: CT head January 06, MRI MRA imaging January 07 TECHNIQUE: MR angiography of the cervical vasculature performed. Coronal imaging plane acquisition u tilized. A 20 MultiHance contrast volume was utilized. Coronal reformatted images were generated and reviewed. Vertical axis 3D rotational projections obtained using maximum intensity projection protoco l. FINDINGS: Aortic arch is 3 vessel configuration with no origins stenosis. Codominant vertebral arter y origins also unremarkable. There is tortuosity of the proximal left vertebral artery. No carotid or vertebral dissection. No significant atherosclerotic changes identifiable with no luminal narrowing seen. No basilar abnormality. The small distal most right vertebral artery is a normal anatomic varia nt. IMPRESSION: MRA neck imaging shows no significant or suspicious finding.
--- NOTE | 2021-01-07 09:24 | RAD REPORT ---
EXAM DESCRIPTION: MRI - MRA Head Wo Cont - 01/07/2021 8:40 am CLINICAL HISTORY: Right cerebral hemisphere CVA COMPARISON: CT head January 06, MRI brain January 07 TECHNIQUE: Axial and coronal 3D [id number] image acquisition was performed. 3D rotational images were generated with source and reconstruction images reviewed. Horizontal and vertical axis rotation al views generated using MIP protocol. FINDINGS: No aneurysm or vascular malformation identified. Major venous sinuses are patent. Vertebral arteries are codominant except for the much smaller distal 1.5 cm of the right vertebral ar elijah. This is a normal variant configuration. Patient has significant irregular atherosclerotic narrowing of the supraclinoid or distal most portio n right internal carotid artery. No significant disease of the distal left internal carotid artery or basilar artery. Minimal disease in the anterior cerebral arteries. Mild to moderate bilateral posterior cerebral jon ry atherosclerotic disease. Bilateral middle cerebral artery mild disease in the M2 and M3 branches w ith diminished visualization of the far peripheral right middle cerebral artery branches. This would match up with the area of infarction. IMPRESSION: Significant atherosclerotic irregular luminal narrowing of the supraclinoid or distal mo st portion of the right internal carotid artery. Overall diminished visualization of the far peripheral branches of the right middle cerebral artery m atching up with the area of infarcted brain parenchyma. Specific named branch occlusion not seen.
[2021-01-07] MEDS ORDERED: PNEUMOCOCCAL VACCINE 0.5 ML IMVAC ONE (10:00)
[2021-01-07] MEDS: ASPIRIN EC 81 MG TAB PO SCH (11:10)
[2021-01-07 12:01] VITALS: BP 171/90; TEMP 98.7
--- NOTE | 2021-01-07 13:44 | P.DS ---
Admission Date: 01/06/21 Discharge Date: 01/07/21 Disposition: ROUTINE DISCHARGE Discharge Condition: GOOD Reason for Admission: CVA, left sided numbness and weakness. Consultations: Neurology - Dr. Butler Procedures: CXR (01/06): No acute abnormalities displayed CT Head (01/06): Moderate to large right cerebral infarction probably acute. A 7.5 centimeter low-density area present within the right occipital/right parietal lobes. This has the appearance of an acute infarction. Small low- density area within the right frontal lobe probably acute infarct. A 1.4 centimeter low-density area right thalamus has more of the appearance of being chronic than acute. Carotid U/S (01/06): Mild plaque within the carotid arteries without evidence of a hemodynamically significant stenosis MRI Brain (01/07): Subacute infarction involving substantial portions of the right parietal and occipital lobes. The parietal component is in a typical right middle cerebral artery distribution. The occipital lobe involvement extends beyond the typical middle cerebral artery distribution. This is probably normal anatomic variant rather than involvement of posterior circulation. There is significant enhancement on postcontrast imaging from blood brain barrier breakdown. No intraparenchymal hematoma seen. Enhancement of the right thalamus ischemic injury may indicate that this is late subacute in age. Overall mild atrophy with mild scattered cerebral chronic ischemic disease. MRA Brain (01/07): Significant atherosclerotic irregular luminal narrowing of the supraclinoid or distal most portion of the right internal carotid artery. Overall diminished visualization of the far peripheral branches of the right middle cerebral artery matching up with the area of infarcted brain parenchyma. Specific named branch occlusion not seen. MRA Neck (01/07): MRA neck imaging shows no significant or suspicious finding. TTE (01/07): report pending at time of discharge. Problem List: R parietal and occiptal CVAs HTN HLD Brief History of Present Illness: 65 y o male pt with hx of hypertension who was evaluated in the Ed for episode of weakness and numbness in the left arm. he woke up from sleep 2 days ago with feeling of weakness and numbness in the left arm/forearm 2 days ago.prior to this episode, he had been having headache and speech issues. he also reported issues with occasions of swallow difficulty and choking. he denied overt double vision, n/v or total loss of function in any limb. CT of the brain done in the ED was concerning for acute stroke in the parieto- occipital region. he denied any with fever, chills, rigor, diarrhea, sob. he has also had issues with comprehending speech and occasionally verbalizing his thoughts. Hospital Course: Evaluation revealed distal internal carotid stenosis, likely contributing to the patient's CVA. Neurology and Physical Therapy were consulted. Patient did well and was deemed safe/ready for discharge home. He was given exercises to perform at home. He is to f/u with Neurology in ~1 month. Vital Signs/Physical Exam: Physical Exam Gen: NAD, AAOx3 HEENT: normal conjuctiva, PERRL, EOMI CV: regular rate and rhythm, no murmur Pulm: clear to auscultation to bilaterally, nonlabored on room air Abd: soft, nontender, nondistended Ext: no edema, no rash Neuro: L inferolateral vision loss of L eye. LUE: 4/5 strength from flexors/extensors distal to elbow Temp Pulse Resp BP Pulse Ox 98.7 F 75 18 171/90 H 96 01/07/21 12:00 01/07/21 12:00 01/07/21 12:00 01/07/21 12:00 01/07/21 12:00 Laboratory Data at Discharge: WBC 9.00 K/uL (4.3-10.9) 01/06/21 14:34 Hgb 13.1 g/dL (13.6-17.9) L 01/06/21 14:34 Hct 38.9 % (39.6-49.0) L 01/06/21 14:34 Plt Count 232 K/uL (152-406) 01/06/21 14:34 PT 13.8 SECONDS (9.5-12.5) H 01/06/21 14:34 INR 1.20 01/06/21 14:34 Sodium 141 mmol/L (136-145) 01/06/21 14:34 Potassium 3.7 mmol/L (3.5-5.1) 01/06/21 14:34 BUN 21 mg/dL (7-18) H 01/06/21 14:34 Creatinine 1.22 mg/dL (0.55-1.3) 01/06/21 14:34 Glucose 95 mg/dL (74-106) 01/06/21 14:34 Magnesium 1.9 mg/dL (1.8-2.4) 01/06/21 14:34 Total Bilirubin 0.7 mg/dL (0.2-1.0) 01/06/21 14:34 AST 23 U/L (15-37) 01/06/21 14:34 ALT 35 U/L (12-78) 01/06/21 14:34 Alkaline Phosphatase 62 U/L (45-117) 01/06/21 14:34 Triglycerides 111 mg/dL (<150) 01/07/21 05:08 Cholesterol 135 mg/dL (<200) 01/07/21 05:08 HDL Cholesterol 30 mg/dL (40-60) L 01/07/21 05:08 Cholesterol/HDL Ratio 4.50 01/07/21 05:08 Home Medications: Losartan Potassium [Cozaar] 100 mg PO DAILY 11/04/18 Trazodone [Desyrel*] 50 mg PO BEDTIME 01/06/21 Aspirin [Aspirin EC 81 MG] 81 mg PO DAILY 30 Days #30 tablet. 01/07/21 Atorvastatin Calcium [Lipitor] 40 mg PO BEDTIME 30 Days #30 tab 01/07/21 Clopidogrel Bisulfate [Plavix*] 75 mg PO DAILY 30 Days #30 tablet 01/07/21 Folic Acid 1 mg PO DAILY 30 Days #30 tablet 01/07/21 New Medications: Aspirin [Aspirin EC 81 MG] 81 mg PO DAILY 30 Days #30 tablet. Folic Acid 1 mg PO DAILY 30 Days #30 tablet Atorvastatin Calcium [Lipitor] 40 mg PO BEDTIME 30 Days #30 tab Clopidogrel Bisulfate [Plavix*] 75 mg PO DAILY 30 Days #30 tablet Physician Discharge Instructions: PROBLEM: Ischemic Stroke GOAL: Clear understanding of disease process E-scripts sent to [facility] in [place]. INSTRUCTIONS: - You were found to have a stroke. - You have Left arm/hand weakness and Left lower sided vision loss. You should not drive. - You are discharged with medications for your stroke. - Please continue physical therapy exercises as instructed. - Follow up with Neurology - Dr. Butler in ~1 month. - Follow up with your Primary Care Provider in 3-5 days. - Return to the ER if your symptoms worsen. - Call the 2nd floor at if you have any questions regarding your nursing care. Diet: Heart healthy Activity: Fall precautions IMMUNIZATION Influenza Vaccine Indicated: Influenza Vaccine Given: Date Given: Pneumonia Vaccine Indicated: Yes Pneumonia Vaccine Given: Yes Date Given: 01/07/21 Diet: AHA Activity: Fall precautions (no driving) Followup: Emmanuel Butler MD [ASSOCIATE-ACTIVE - CAN ADMIT] - (Follow up in office in 1 month. Call to schedule an appointment.) Time spent managing pt's care (in minutes): 35
[2021-01-07 17:10] VITALS: O2SAT 96
--- NOTE | 2021-01-08 09:08 | ECHO ---
HEIGHT: 5 ft 10 in WEIGHT: 237 lb 1.6 oz DATE OF STUDY: 01/07/[address]: Ten Ponce MD 2-DIMENSIONAL: YES M.MODE: YES DOPPLER: NO COLOR FLOW: NO TDS: PORTABLE: DEFINITY: BUBBLE STUDY: DIAGNOSIS: WORK UP OF PATIENT WITH CEREBRAL VASCULAR ACCIDENT CARDIAC HISTORY: CATHERIZATION: NO SURGERY: NO PROSTHETIC VALVE: NO PACEMAKER: NO MEASUREMENTS (cm) DIASTOLIC (NORMALS) SYSTOLIC (NORMALS) IVSd 1.4 (0.6-1.2) LA Diam 3.7 (1.9-4.0) LVEF 55-60% LVIDd 4.3 (3.5-5.7) LVIDs 2.7 (2.0-3.5) %FS 37% LVPWd 1.3 (0.6-1.2) Ao Diam 3.2 (2.0-3.7) 2 DIMENSIONAL ASSESSMENT: RIGHT ATRIUM: NORMAL LEFT ATRIUM: NORMAL RIGHT VENTRICLE: NORMAL LEFT VENTRICLE: LEFT VENTRICULAR HYPERTROPHY TRICUSPID VALVE: NORMAL MITRAL VALVE: NORMAL PULMONIC VALVE: NORMAL AORTIC VALVE: NORMAL PERICARDIAL EFFUSION: NONE AORTIC ROOT: NORMAL LEFT VENTRICULAR WALL MOTION: DOPPLER/COLOR FLOW: NOT REQUESTED COMMENTS: 2-DIMENSIONAL ECHOCARDIOGRAM ONLY. NORMAL LEFT VENTRICULAR EJECTION FRACTION 55-60%. NORMAL RIGHT VENTRICULAR SIZE AND FUNCTION. LEFT VENTRICULAR HYPERTROPHY. TECHNOLOGIST: ZACHERY RHODES
== END 2021-01-07 15:59 | disposition home or self-care (01) | DRG 65 ==
LOC: ER 13:15 → ERHOLD 16:08 → 2ND 19:21
PROVIDERS: ADMIT Internal Medicine Nephrology; ATTEND Hospitalist
DX: I63.9 Cerebral infarction, unspecified (principal); G81.94 Hemiplegia, unspecified affecting left nondominant side; I10 Essential (primary) hypertension; E78.5 Hyperlipidemia, unspecified; I65.29 Occlusion and stenosis of unspecified carotid artery; H53.8 Other visual disturbances; R51.9 Headache, unspecified; R29.701 NIHSS score 1; R07.9 Chest pain, unspecified; Z88.5 Allergy status to narcotic agent; Z79.899 Other long term (current) drug therapy; Z79.02 Long term (current) use of antithrombotics/antiplatelets; Z79.82 Long term (current) use of aspirin; Z20.822 Contact with and (suspected) exposure to COVID-19; Z23 Encounter for immunization
CPT/HCPCS: 36415; 70450; 70544; 70549; 70553; 71045; 80048; 80061; 80076; 80320; 81003; 83036; 83735; 83880; 84484; 85025; 85610; 90471; 90732; 93005; 93307; 93880; 96365; 97112; 97161; 99285; A9577; J1650; J3411; J7030; U0003

== ENCOUNTER 2021-03-02 17:59 | Inpatient (IN) | payer OTHER, SELFPAY ==
--- NOTE | 2021-03-02 18:40 | RAD REPORT ---
EXAM DESCRIPTION: CT - Ct Stroke Brain Wo Cont - 03/02/2021 6:26 pm CLINICAL HISTORY: Slurred speech;Weakness, CVA 6 weeks earlier COMPARISON: Head Brain Wo Cont dated 01/06/2021 TECHNIQUE: Axial 5 millimeter thick images of the head were obtained without IV contrast. All CT scans are performed using dose optimization technique as appropriate and may include automated exposure control or mA/KV adjustment according to patient size. FINDINGS: No intracranial hemorrhage is present. No cerebral edema, suspicious mass effect or midlin e shift. An acute cortical based infarction is not identifiable. Posterior right parieto-occipital di minished attenuation is present representing the expected aging of the CVA seen January 06. There is di minished attenuation in the right posterior limb internal capsule and lateral thalamus region also re presenting aging of a prior CVA. Patient has some patchy chronic ischemic change. Atrophy is minimal. No extra-axial fluid collections. Visualized portions of the mastoid air cells, paranasal sinuses, and orbits are without acute finding . Findings telephoned to Dr. Hassan 6:35 p.m. IMPRESSION: No intracranial hemorrhage is present. A new, acute CVA is not evident on this examinati on. Right parieto-occipital and right internal capsule diminished attenuation represents the expected zane ng of nonhemorrhagic infarctions seen January 06.
[2021-03-02 18:51] LABS: Absolute Lymphocytes (CBC) 1.7 K/uL (0.7-4.9); Basophils % 0.5 % (0-1.3); Hematocrit 42.3 % (39.6-49.0); Lymphocytes % 13.2 % (15.3-44.8); MPV 9.9 fL (7.6-11.3); RBC Red Blood Cell Count 4.92 M/uL (4.33-5.43)
[2021-03-02 19:03] LABS: Protime INR 1.1
[2021-03-02 19:08] LABS: Potassium 4.3 mmol/L (3.5-5.1)
--- NOTE | 2021-03-02 19:32 | RAD REPORT ---
EXAM DESCRIPTION: RAD - Chest Single View - 03/02/2021 7:05 pm CLINICAL HISTORY: Left sided weakness and slurred speech, Stroke protocol chest film COMPARISON: January 06 TECHNIQUE: AP portable chest image was obtained 03/02/2021 7:05 pm . FINDINGS: No peripheral mass consolidation. No failure or volume overload. Heart size is exaggerated by lordotic positioning and low lung volumes. No vascular engorgement. No measurable pleural effusio n and no pneumothorax. No acute bony abnormality seen. No acute aortic findings suspected. IMPRESSION: No acute cardiopulmonary process. No significant change from comparison study.
[2021-03-02] MEDS ORDERED: CLOPIDOGREL 75 MG TABLET ONE (19:43)
[2021-03-02] MEDS ORDERED: ASPIRIN EC 325 MG TABLET PO ONE (19:43)
[2021-03-02] MEDS ORDERED: ATORVASTATIN 20 MG TAB ONE (19:43)
[2021-03-02] MEDS ORDERED: FOLIC ACID 5 MG/ML VIAL ONE ×2 (19:44→19:47)
[2021-03-02] MEDS ORDERED: NA CHLORIDE 0.9% 500 ML ONE (20:08)
[2021-03-02] MEDS ORDERED: NA CHLORIDE 0.9% 1,000 ML ONE ×2 (20:08→23:10)
--- NOTE | 2021-03-02 21:42 | ER ---
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 States he had a stroke 6 weeks ago, on a blood thinner since. States he hasn't taken his blood thinner in 2 weeks, feels the same as his last stroke. Coronavirus screen: Client denies travel out of the [place] in the last 14 days. At this time, the client does not indicate any symptoms associated with coronavirus-19. Ebola Screen: Patient denies travel to an Ebola-affected area in the 21 days before illness onset. An acute neurological deficit is present. The charge nurse has been notified. Initial Sepsis Screen: Does the patient meet any 2 criteria? No. Patient's initial sepsis screen is negative. Does the patient have a suspected source of infection? No. Patient's initial sepsis screen is negative. Risk Assessment: Do you want to hurt yourself or someone else? Patient reports no desire to harm self or others. Onset of symptoms was March 02, 2021. 18:19 Method Of Arrival: Ambulatory ll1 18:19 Acuity: ISABEL 2 ll1 Stroke Activation: Symptom onset < 3 hours Physician: Stroke Attending; Name: ; Notified At: ; Arrived At: Physician: Chief Stroke Resident; Name: ; Notified At: ; Arrived At: Physician: Stroke Resident; Name: ; Notified At: ; Arrived At: Physician: ED Attending; Name: Rochelle Hassan; Notified At: ; Arrived At: Physician: ED Resident; Name: ; Notified At: ; Arrived At: Historical: - Allergies: 18:22 Codeine; ll1 - PMHx: 18:22 BPH; Hypertension; CVA; ll1 - PSHx: 18:22 prostate; Hernia repair; ll1 - Immunization history:: Client reports receiving the 1st dose of the Covid vaccine, Flu vaccine is not up to date. - Social history:: Smoking status: Patient/guardian denies using tobacco, the patient reports quitting approximately 8 years ago. Screenin:41 Abuse screen: Denies threats or abuse. Nutritional screening: No deficits noted. rb3 Tuberculosis screening: No symptoms or risk factors identified. Fall Risk None identified. Assessment: 18:25 General: Appears in no apparent distress. Behavior is calm, cooperative. Pain: Denies rb3 pain. Neuro: Level of Consciousness is awake, alert, obeys commands, Oriented to person, place, time, situation, Reports headache frontal area. Cardiovascular: Patient's skin is warm and dry. Respiratory: Airway is patent Respiratory effort is even, unlabored, Respiratory pattern is regular, symmetrical. GI: No signs and/or symptoms were reported involving the gastrointestinal system. : No signs and/or symptoms were reported regarding the genitourinary system. Musculoskeletal: Range of motion: intact in all extremities. 18:25 General: Has not taken blood thinners for the last two weeks. Musculoskeletal: rb3 Ambulates with cane. Musculoskeletal: Reports weakness in left arm and left leg. 19:00 Reassessment: Patient and/or family updated on plan of care and expected duration. Pain fu level reassessed. Patient is alert, oriented x 3, equal unlabored respirations, skin warm/dry/pink. slurred speech not noted. 19:30 Reassessment: Patient passed bedside swallow test, Fabian ROUSTABOUT HEAD notified, can give fu ordered medications now. 19:30 Patient has been NPO before screening. The patient is alert, and able to follow fu commands. The patient does not exhibit slurred or garbled speech. The patient is not exhibiting difficulty speaking. The patient does not exhibit difficulty understanding words. The patient is able to swallow own secretions with no drooling or need for suction. Patient tolerated one teaspoon of water. No drooling, immediate coughing, gurgling, or clearing of the throat was noted. The patient tolerated 90mL of water. No drooling, immediate coughing, gurgling, or clearing of the throat was noted. The patient passed the bedside swallow screening. Oral medications may be given as ordered. Contact Physician for further diet orders. Provider notified of bedside swallow screening results: Jasiel Peralta NP. 19:37 Reassessment: Patient decided to admitted in the hospital, refusing to be transferred fu to other facility for MRI as advised by ROUSTABOUT HEAD. 22:00 Reassessment: Patient and/or family updated on plan of care and expected duration. Pain fu level reassessed. Patient is alert, oriented x 3, equal unlabored respirations, skin warm/dry/pink. 23:44 Reassessment: patient asleep in bed, IVF ongoing, family left asking to be updated once fu room is assigned to the patient. Vital Signs: 18:19 BP 139 / 90; Pulse 88; Resp 17; Temp 97.8; Pulse Ox 97% on R/A; Height 5 ft. 10 in. ll1 (177.80 cm); Pain 5/10; 18:42 BP 130 / 91; Pulse 82; Resp 19; Pulse Ox 95% ; Pain 5/10; rb3 19:00 BP 125 / 83; Pulse 83; Resp 19; Pulse Ox 94% on R/A; Pain 0/10; fu 20:00 BP 118 / 98; Pulse 78; Resp 20; Pulse Ox 78% on R/A; Pain 0/10; fu 23:00 BP 135 / 76; Pulse 75; Resp 16; Pulse Ox 91% on R/A; Pain 0/10; fu 03/03 00:09 BP 110 / 69; Pulse 79; Resp 18; Temp 97.3(TE); Pulse Ox 96% on R/A; Pain 0/10; fu 03/02 18:42 headache rb3 NIH Stroke Scale Scores: 18:25 NIHSS Score: 4 rb3 18:35 NIHSS Score: 2 pm1 ED Course: 18:00 Patient arrived in ED. am2 18:00 Jamar Stevens MD is Private Physician. am2 18:14 Arm band placed on Patient placed in an exam room, on a stretcher. ll1 18:22 Triage completed. ll1 18:22 Jasiel Peralta NP is PHCP. pm1 18:22 Artur Hassan MD is Attending Physician. pm1 18:26 CT Stroke Brain w/o Contrast In Process Unspecified. EDMS 18:37 Nancy Olvera, EDGAR is Primary Nurse. rb3 18:41 Patient has correct armband on for positive identification. Bed in low position. Call rb3 light in reach. Side rails up X 1. conveyor monitor on. Pulse ox on. NIBP on. Warm blanket given. 19:12 Stroke CXR 1 View In Process Unspecified. EDMS 19:15 Primary Nurse role handed off by Nancy Olvera, EDGAR mw2 19:17 Cameron Meneses, EDGAR is Primary Nurse. fu 20:53 COVID-19 : Document "Date of Symptom Onset" if Symptomatic. Sent. fu 21:40 Bucky Hassan MD is Hospitalizing Provider. pm1 03/03 00:11 No provider procedures requiring assistance completed. Patient admitted, IV remains in fu place. Administered Medications: 03/02 19:42 Drug: Aspirin 325 mg Route: PO; fu 20:40 Follow up: Response: No adverse reaction fu 19:42 Drug: foLIC Acid 1 mg Route: IVPB; Site: right antecubital; fu 20:40 Follow up: Response: No adverse reaction fu 19:42 Drug: Atorvastatin 40 mg Route: PO; fu 20:40 Follow up: Response: No adverse reaction fu 19:43 Drug: PlaVIX (clopidogrel) 75 mg Route: PO; fu 20:40 Follow up: Response: No adverse reaction fu 19:57 Drug: NS 0.9% 500 ml Route: IV; Rate: bolus; Site: right antecubital; fu 20:57 Follow up: Response: No adverse reaction; IV Intake: 500ml fu 20:35 Drug: NS 0.9% 1000 ml Route: IV; Rate: 125 ml/hr; Site: right antecubital; fu Point of Care Testing: Blood Glucose: 20:13 Blood Glucose: 112 mg/dL; fu Ranges: Intake: 20:57 IV: 500ml; Total: 500ml. fu Outcome: 21:41 Decision to Hospitalize by Provider. pm1 03/03 01:00 Admitted to Med/surg accompanied by nurse, via stretcher, room 228, Report called to aneesh Dukes RN Condition: good Instructed on the need for admit, Demonstrated understanding of instructions. 01:12 Patient left the ED. bb NIH Stroke Scale - NIH Stroke Score Date: 03/02/2021 Time: 18:25 Total Score = 4 1a. Level of Consciousness (LOC) - 0(Alert) 1b. Level of Consciousness (LOC) (Year \\T\\ Age) - 0(Both) 1c. LOC Commands (Open \\T\\ Closes Eyes/Assembly Machine Operator) - 0(Both) 2. Best Gaze (Lateral Gaze Paresis) - 0(Normal) 3. Visual Field Loss - 0(No visual loss) 4. Facial Palsy - 0(Normal) 5a. Left Arm: Motor (10-second hold) - 2(Drift, some effort against gravity) 5b. Right Arm: Motor (10-second hold) - 0(No drift) 6a. Left Leg: Motor (5-second hold - always test supine) - 2(Drift, some effort against gravity) 6b. Right Leg: Motor (5-second hold - always test supine) - 0(No drift) 7. Limb Ataxia (finger/nose \\T\\ heel/crane - test with eyes open) - 0(Absent) 8. Sensory Loss (pinprick arms/legs/face) - 0(Normal) 9. Best Language: Aphasia (description/naming/reading) - 0(No aphasia) 10. Dysarthria (speech clarity - read or repeat words) - 0(Normal) 11. Extinction and Inattention (visual/tactile/auditory/spatial/personal) - 0(No abnormality) Initials: rb3 NIH Stroke Scale - NIH Stroke Score Date: 03/02/2021 Time: 18:35 Total Score = 2 1a. Level of Consciousness (LOC) - 0(Alert) 1b. Level of Consciousness (LOC) (Year \\T\\ Age) - 0(Both) 1c. LOC Commands (Open \\T\\ Closes Eyes/Assembly Machine Operator) - 0(Both) 2. Best Gaze (Lateral Gaze Paresis) - 0(Normal) 3. Visual Field Loss - 0(No visual loss) 4. Facial Palsy - 0(Normal) 5a. Left Arm: Motor (10-second hold) - 1(Drift) 5b. Right Arm: Motor (10-second hold) - 0(No drift) 6a. Left Leg: Motor (5-second hold - always test supine) - 1(Drift) 6b. Right Leg: Motor (5-second hold - always test supine) - 0(No drift) 7. Limb Ataxia (finger/nose \\T\\ heel/crane - test with eyes open) - 0(Absent) 8. Sensory Loss (pinprick arms/legs/face) - 0(Normal) 9. Best Language: Aphasia (description/naming/reading) - 0(No aphasia) 10. Dysarthria (speech clarity - read or repeat words) - 0(Normal) 11. 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 States he had a stroke 6 weeks ago, on a blood thinner since. States he hasn't taken his blood thinner in 2 weeks, feels the same as his last stroke. ll1 23:42 23:35 Reassessment: Patient passed bedside swallow test, Fabian FREY notified, fu can give ordered medications now fu 03/03 01:37 03/02 19:37 Reassessment: Patient decided to admitted in the hospital, refusing fu to be transferred to there facility for MRI as advised by ROUSTABOUT HEAD aneesh
--- NOTE | 2021-03-02 21:42 | EDPHYS ---
Physician Documentation [facility] Name: Jamar Pedersen Age: 65 yrs Sex: Male : 1955 Arrival Date: 03/02/2021 Time: 18:00 Bed 17 Private MD: Jamar Stevens T ED Physician Artur Hassan HPI: 03/02 18:42 This 65 yrs old Male presents to ER via Ambulatory with complaints of left pm1 arm/leg weakness, Slurred Speech. 18:42 The patient presents to the emergency department with weakness of the left upper pm1 extremity, left lower extremity, slurred speech. Onset: The symptoms/episode began/occurred today, at 16:15. Context: occurred at home. Associated signs and symptoms: Pertinent positives: headache, Pertinent negatives: fever, chest pain, shortness of breath. Severity of symptoms: in the emergency department the symptoms have improved slurred speech resolved. It started 30 minutes ago. Patient's baseline: Neuro: alert and fully oriented, Motor: left-sided weakness, Ambulation: walks without assistance, Speech: normal, The patient has a previous history of CVA, 01/06/2021. Current symptoms: headache, weakness of left hand. The patient has experienced a previous episode, and the symptoms today are exactly the same, to prior CVA on 01/06/2021. The patient has not recently seen a physician, Patient ran out of his medications for aspirin, folic acid, atorvastatin, Plavix. He only had a 30 day prescription from discharge. When they ran out he did not get them refilled. Patient reports that last week almost all his deficits to his left arm and hand had completely resolved. Patient was out in the yard all day today and did not drink much fluids. Historical: - Allergies: 18:22 Codeine; ll1 - PMHx: 18:22 BPH; Hypertension; CVA; ll1 - PSHx: 18:22 prostate; Hernia repair; ll1 - Immunization history:: Client reports receiving the 1st dose of the Covid vaccine, Flu vaccine is not up to date. - Social history:: Smoking status: Patient/guardian denies using tobacco, the patient reports quitting approximately 8 years ago. ROS: 18:42 Constitutional: Negative for fever, chills, and weight loss, Eyes: Negative for injury, pm1 pain, redness, and discharge, ENT: Negative for injury, pain, and discharge, Neck: Negative for injury, pain, and swelling, Cardiovascular: Negative for chest pain, palpitations, and edema, Respiratory: Negative for shortness of breath, cough, wheezing, and pleuritic chest pain, Abdomen/GI: Negative for abdominal pain, nausea, vomiting, diarrhea, and constipation, Back: Negative for injury and pain. 18:42 Skin: Negative for injury, rash, and discoloration. 18:42 MS/extremity: Positive for decreased range of motion, of the left hand, with making a fist. It is painful to make a fist per patient, Negative for injury or acute deformity. 18:42 Neuro: Positive for weakness, of the left arm and left leg, slurred speech. Exam: 18:42 Head/Face: Normocephalic, atraumatic. pm1 18:42 Neck: Trachea midline, no thyromegaly or masses palpated, and no cervical lymphadenopathy. Supple, full range of motion without nuchal rigidity, or vertebral point tenderness. No Meningismus. 18:42 Back: No spinal tenderness. No costovertebral tenderness. Full range of motion. Skin: Warm, dry with normal turgor. Normal color with no rashes, no lesions, and no evidence of cellulitis. MS/ Extremity: Pulses equal, no cyanosis. Neurovascular intact. Full, normal range of motion. 18:42 Constitutional: The patient appears alert, awake, non-diaphoretic, non-toxic, well developed, well hydrated, well groomed, well nourished. 18:42 Eyes: Exam is negative for acute changes, Pupils: no acute changes, normal size, normal reaction to light, Extraocular movements: intact throughout, Conjunctiva: normal. 18:42 ENT: Mouth: Lips: normal, Oral mucosa: normal, pink and intact, moist, Tongue: is normal, Posterior pharynx: is normal, airway is patent. 18:42 Cardiovascular: Rate: normal, Rhythm: regular, Pulses: no pulse deficits are appreciated, Edema: is not appreciated. 18:42 Respiratory: Exam negative for acute changes, respiratory distress, shortness of breath, Breath sounds: are clear throughout. 18:42 Abdomen/GI: Inspection: obese Palpation: abdomen is soft and non-tender, in all quadrants. 18:42 Neuro: Orientation: is normal, Mentation: is normal, Cranial nerves: CN II- XII are normal as tested, Cerebellar function: normal finger to nose testing, Motor: moves all fours, strength is 5/5 in the right arm and right leg, strength is 4/5 in the left leg, Strength is 3/5 in the left hand occupational therapy assistant, Sensation: is normal, no obvious gross deficits. Vital Signs: 18:19 BP 139 / 90; Pulse 88; Resp 17; Temp 97.8; Pulse Ox 97% on R/A; Height 5 ft. 10 in. ll1 (177.80 cm); Pain 5/10; 18:42 BP 130 / 91; Pulse 82; Resp 19; Pulse Ox 95% ; Pain 5/10; rb3 19:00 BP 125 / 83; Pulse 83; Resp 19; Pulse Ox 94% on R/A; Pain 0/10; fu 20:00 BP 118 / 98; Pulse 78; Resp 20; Pulse Ox 78% on R/A; Pain 0/10; fu 23:00 BP 135 / 76; Pulse 75; Resp 16; Pulse Ox 91% on R/A; Pain 0/10; fu 03/03 00:09 BP 110 / 69; Pulse 79; Resp 18; Temp 97.3(TE); Pulse Ox 96% on R/A; Pain 0/10; fu 03/02 18:42 headache rb3 NIH Stroke Scale Scores: 18:25 NIHSS Score: 4 rb3 18:35 NIHSS Score: 2 pm1 MDM: 18:31 Patient medically screened. pm1 18:34 ED course: Patient is not a TPA candidate because he has had a stroke less than 3 pm1 months ago. 19:41 Physician consultation: Emmanuel Butler MD was called at 19:28, was contacted at 19:41, pm1 regarding consult, patient's condition, Recommended patient have a CT angio head but his Cr is elevated due to dehydration. Therefore recommended transfer for MRI since unavailable for us today and tomorrow. 19:53 Counseling: I had a detailed discussion with the patient and/or guardian regarding: the pm1 historical points, exam findings, and any diagnostic results supporting the discharge/admit diagnosis, radiology results, the need to transfer to another facility, for higher level of care, Discussed Dr. Butler's recommendations for plan of care. Patient does not want to be transferred or admitted. Advised the patient to discuss with friends and family in room prior to leaving AMA. 20:36 ED course: Patient does not want to be transferred. He is still deciding if he wants to pm1 go home or stay in the hospital. 21:29 ED course: Patient decided that he wants to stay in this hospital. He understands that pm1 if he stays here that he is potentially delaying care and/or losing to ability to possibly get intervention if he is able to get an MRI today or tomorrow at another facility. Patient's friend and family at bed side and agree with his decision. 21:31 Physician consultation: Efrain HAIRSTON regarding admission, and will see patient in pm1 ED. 21:38 Data reviewed: vital signs. Data interpreted: Pulse oximetry: on room air is 95 %. pm1 Interpretation: normal. 03/02 18:33 Order name: Basic Metabolic Panel; Complete Time: 19:17 pm1 03/02 18:33 Order name: CBC with Diff; Complete Time: 19:01 pm1 03/02 18:33 Order name: Protime (+inr); Complete Time: 19:17 pm1 03/02 18:33 Order name: Ptt, Activated; Complete Time: 19:17 pm1 12 19:02 Order name: COVID-19 : Document "Date of Symptom Onset" if Symptomatic. pm1 03/02 18:19 Order name: CT Stroke Brain w/o Contrast; Complete Time: 18:51 ll1 03/02 18:33 Order name: Stroke CXR 1 View; Complete Time: 19:36 pm1 03/02 20:25 Order name: Glucose, Ancillary Testing; Complete Time: 20:43 EDMS 12 22:39 Order name: SARS-COV-2 RT PCR; Complete Time: 22:52 EDMS 12 18:33 Order name: EKG; Complete Time: 18:34 pm1 03/02 18:33 Order name: Accucheck; Complete Time: 20:38 pm1 03/02 18:33 Order name: Cardiac monitoring; Complete Time: 19:59 pm1 03/02 18:33 Order name: EKG - Nurse/Tech; Complete Time: 20:38 pm1 03/02 18:33 Order name: IV Saline Lock; Complete Time: 19:59 pm1 03/02 18:33 Order name: Labs collected and sent; Complete Time: 19:59 pm1 03/02 18:33 Order name: NPO; Complete Time: 19:59 pm1 03/02 18:33 Order name: O2 Per Protocol; Complete Time: 19:59 pm1 03/02 18:33 Order name: O2 Sat Monitoring; Complete Time: 19:59 pm1 03/02 18:33 Order name: Stroke Swallow Screen; Complete Time: 19:59 pm1 Administered Medications: 19:42 Drug: Aspirin 325 mg Route: PO; fu 20:40 Follow up: Response: No adverse reaction fu 19:42 Drug: foLIC Acid 1 mg Route: IVPB; Site: right antecubital; fu 20:40 Follow up: Response: No adverse reaction fu 19:42 Drug: Atorvastatin 40 mg Route: PO; fu 20:40 Follow up: Response: No adverse reaction fu 19:43 Drug: PlaVIX (clopidogrel) 75 mg Route: PO; fu 20:40 Follow up: Response: No adverse reaction fu 19:57 Drug: NS 0.9% 500 ml Route: IV; Rate: bolus; Site: right antecubital; fu 20:57 Follow up: Response: No adverse reaction; IV Intake: 500ml fu 20:35 Drug: NS 0.9% 1000 ml Route: IV; Rate: 125 ml/hr; Site: right antecubital; fu Point of Care Testing: Blood Glucose: 20:13 Blood Glucose: 112 mg/dL; fu Ranges: Critical Glucose Levels:Adult <50 mg/dl or >400 mg/dl <40 mg/dl or >180 mg/dl Disposition: 03/03 08:07 Co-signature as Attending Physician, Artur Hassan MD. rn Disposition: 03/02/21 21:41 Hospitalization ordered by Bucky Hassan for Inpatient Admission. Preliminary diagnosis are Cerebral infarction, Dehydration, Acute kidney injury. - Bed requested for Telemetry/MedSurg (Inpatient). - Status is Inpatient Admission. bb - Condition is Stable. - Problem is new. - Symptoms have improved. NIH Stroke Scale - NIH Stroke Score Date: 03/02/2021 Time: 18:25 Total Score = 4 1a. Level of Consciousness (LOC) - 0(Alert) 1b. Level of Consciousness (LOC) (Year \\T\\ Age) - 0(Both) 1c. LOC Commands (Open \\T\\ Closes Eyes/Metal Stamper) - 0(Both) 2. Best Gaze (Lateral Gaze Paresis) - 0(Normal) 3. Visual Field Loss - 0(No visual loss) 4. Facial Palsy - 0(Normal) 5a. Left Arm: Motor (10-second hold) - 2(Drift, some effort against gravity) 5b. Right Arm: Motor (10-second hold) - 0(No drift) 6a. Left Leg: Motor (5-second hold - always test supine) - 2(Drift, some effort against gravity) 6b. Right Leg: Motor (5-second hold - always test supine) - 0(No drift) 7. Limb Ataxia (finger/nose \\T\\ heel/crane - test with eyes open) - 0(Absent) 8. Sensory Loss (pinprick arms/legs/face) - 0(Normal) 9. Best Language: Aphasia (description/naming/reading) - 0(No aphasia) 10. Dysarthria (speech clarity - read or repeat words) - 0(Normal) 11. Extinction and Inattention (visual/tactile/auditory/spatial/personal) - 0(No abnormality) Initials: rb3 NIH Stroke Scale - NIH Stroke Score Date: 03/02/2021 Time: 18:35 Total Score = 2 1a. Level of Consciousness (LOC) - 0(Alert) 1b. Level of Consciousness (LOC) (Year \\T\\ Age) - 0(Both) 1c. LOC Commands (Open \\T\\ Closes Eyes/Metal Stamper) - 0(Both) 2. Best Gaze (Lateral Gaze Paresis) - 0(Normal) 3. Visual Field Loss - 0(No visual loss) 4. Facial Palsy - 0(Normal) 5a. Left Arm: Motor (10-second hold) - 1(Drift) 5b. Right Arm: Motor (10-second hold) - 0(No drift) 6a. Left Leg: Motor (5-second hold - always test supine) - 1(Drift) 6b. Right Leg: Motor (5-second hold - always test supine) - 0(No drift) 7. Limb Ataxia (finger/nose \\T\\ heel/crane - test with eyes open) - 0(Absent) 8. Sensory Loss (pinprick arms/legs/face) - 0(Normal) 9. Best Language: Aphasia (description/naming/reading) - 0(No aphasia) 10. Dysarthria (speech clarity - read or repeat words) - 0(Normal) 11. Extinction and Inattention (visual/tactile/auditory/spatial/personal) - 0(No abnormality) Initials: pm1 Signatures: Dispatcher [employer] EDMS Debbie Chavez RN RN bb Nieto, Roman, MD MD rn Garcia, Cindy, RN RN cg Jasiel Peralta, HEALTH SAFETY COORDINATOR HEALTH SAFETY COORDINATOR pm1 Cameron Meneses RN RN fu Lewis, Lynsay, RN RN ll1 Corrections: (The following items were deleted from the chart) 03/02 21:40 19:03 CORONAVIRUS ordered. EDSC EDMS 21:42 21:41 Hospitalization Ordered by Bucky Hassan MD for Observation. Preliminary pm1 diagnosis is Cerebral infarction. Bed requested for Telemetry/MedSurg (observation). Status is Observation. Condition is Stable. Problem is new. Symptoms have improved. pm1 21:43 21:42 03/02/2021 21:41 Hospitalization Ordered by Bucky Hassan MD for pm1 Observation. Preliminary diagnosis is Cerebral infarction; Dehydration. Bed requested for Telemetry/MedSurg (observation). Status is Observation. Condition is Stable. Problem is new. Symptoms have improved. pm1 21:43 21:43 03/02/2021 21:41 Hospitalization Ordered by Bucky Hassan MD for pm1 Observation. Preliminary diagnosis is Cerebral infarction; Dehydration; Acute kidney injury. Bed requested for Telemetry/MedSurg (observation). Status is Observation. Condition is Stable. Problem is new. Symptoms have improved. pm1 23:47 21:43 03/02/2021 21:41 Hospitalization Ordered by Bucky Hassan MD for cg Inpatient Admission. Preliminary diagnosis is Cerebral infarction; Dehydration; Acute kidney injury. Bed requested for Telemetry/MedSurg (Inpatient). Status is Inpatient Admission. Condition is Stable. Problem is new. Symptoms have improved. pm1 03/03 01:12 03/02 23:47 03/02/2021 21:41 Hospitalization Ordered by Bucky Hassan MD for bb Inpatient Admission. Preliminary diagnosis is Cerebral infarction; Dehydration; Acute kidney injury. Bed requested for Telemetry/MedSurg (Inpatient). Status is Inpatient Admission. Condition is Stable. Problem is new. Symptoms have improved.
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
[2021-03-03] MEDS ORDERED: ONDANSETRON 4 MG/2 ML VIAL IV PRN (01:04)
[2021-03-03] MEDS ORDERED: ACETAMINOPHEN 500 MG TAB PO PRN (01:04)
[2021-03-03] MEDS: NA CHLORIDE 0.9% 1,000 ML IV SCH ×3 (01:26→20:49)
[2021-03-03 01:58] VITALS: BMI 32.8
[2021-03-03 05:55] LABS: Absolute Lymphocytes (CBC) 2.4 K/uL (0.7-4.9); Basophils % 0.7 % (0-1.3); Hematocrit 39.7 % (39.6-49.0); RBC Red Blood Cell Count 4.65 M/uL (4.33-5.43)
[2021-03-03 06:15] LABS: Albumin 3.7 g/dL (3.4-5.0); Bilirubin Total 0.5 mg/dL (0.2-1.0); Magnesium 2.2 mg/dL (1.8-2.4); Potassium 3.9 mmol/L (3.5-5.1); Protein, Total 7.4 g/dL (6.4-8.2); Thyroid Stimulating Hormone 2.24 uIU/mL (0.360-3.740); Uric Acid 7.7 mg/dL (3.5-7.2)
[2021-03-03 06:31] LABS: Urine Appearance CLOUDY (Clear); Urine Bilirubin NEGATIVE (Negative); Urine Blood NEGATIVE (Negative); Urine Color YELLOW (Yellow); Urine Glucose NEGATIVE (Negative); Urine Protein NEGATIVE (Negative); Urine Specific Gravity 1.015 (1.005-1.030); Urine Urobilinogen 0.2 mg/dL (0.2-1.0); Urine pH 5.5 (5.0-7.0)
[2021-03-03 06:36] LABS: Urine Microscopic Reflex ORDER UMIC
[2021-03-03 06:51] LABS: Urine Bacteria <20 /HPF (NONE SEEN); Urine Coarse Granular Casts 0-5 /LPF (NONE SEEN); Urine Mucus 2+ /HPF (NONE SEEN); Urine RBC <5 /HPF (NONE SEEN)
[2021-03-03] MEDS ORDERED: POTASSIUM CL SA 10 MEQ TAB PO ONE (09:00)
[2021-03-03] MEDS: ASPIRIN EC 81 MG TAB PO SCH (10:29)
[2021-03-03] MEDS: FOLIC ACID 1 MG TABLET PO SCH (10:30)
[2021-03-03] MEDS: CLOPIDOGREL 75 MG TABLET PO SCH (10:31)
[2021-03-03] MEDS: ENOXAPARIN 40 MG/0.4 ML SQ SCH (10:32)
[2021-03-03] MEDS ORDERED: HYDRALAZINE HCL 20 MG/ML VIAL IV PRN (13:27)
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
--- NOTE | 2021-03-03 14:50 | P.PN ---
Subjective Date of Service: 03/03/21 Chief Complaint: Acute renal failure, left sided weakness Subjective: Improving (strength is improving, feeling better, no headache this morning.) Review of Systems 10-point ROS is otherwise unremarkable Physical Examination - Vital Signs Temperature: 97.8 F Blood Pressure: 167/94 Pulse: 66 Respirations: 20 Pulse Ox (%): 95 - Studies Laboratory Data (last 24 hrs) 03/02/21 18:30: PT 12.7 H, INR 1.10, APTT 27.2 03/02/21 18:30: WBC 12.60 H, Hgb 13.8, Hct 42.3, Plt Count 263 03/02/21 18:30: Sodium 140, Potassium 4.3, BUN 23 H, Creatinine 2.54 H, Glucose 104 Assessment & Plan Physician Review Additional Text: Physical Exam General: Alert, In no apparent distress HEENT: EOMI, sclera anicteric Respiratory: Clear to auscultation bilaterally, Normal air movement Cardiovascular: Regular rate/rhythm, Normal S1 S2 Abd: soft, nontender, nondistended Integumentary: No rashes Neurological: Normal speech, Normal affect, abnormal strength (4/5 strength in left upper and lower extremities, mild drift noted) Problem List Acute renal failure Left-sided weakness with recent history of ischemic CVA Hypertension, hyperlipidemia -patient dehydrated, was outside in high heat for some time -concern for worsening prior stroke vs new CVA -strength improved ~50% by this morning -PT consulted -continue ASA, statin, plavix, folic acid -neuro consulted -pt ran out of his medications and didn't call PCP for refills -CT without new changes -continue home meds as appropriate -allow for permissive hypertension w/i first 24hrs of potential stroke Dispo: anticipate dc home in ~24hrs Time Spent Managing Pts Care (In Minutes): 35
--- NOTE | 2021-03-03 17:37 | RAD REPORT ---
EXAM DESCRIPTION: US - Renal Ultrasound-Complete - 03/03/2021 5:12 pm CLINICAL HISTORY: VINAYAK Flank pain COMPARISON: Abdomen Pelvis W Contrast dated 10/25/2018 FINDINGS: Both kidneys are normal in size, shape and echotexture. The right kidney measures 11 x 5 cm. No hydronephrosis, focal mass or perinephric fluid. The left kidney measures 10 x 6 cm. No hydronephrosis, focal mass or perinephric fluid. Small benign cortical renal cyst left kidney. The urinary bladder is incompletely distended without gross abnormality seen. IMPRESSION: Benign left renal cyst, otherwise negative study.
[2021-03-03] MEDS ORDERED: ATORVASTATIN 40 MG TAB PO SCH (21:00)
[2021-03-03] MEDS ORDERED: TRAZODONE 50 MG TABLET PO SCH (21:00)
[2021-03-03 22:52] VITALS: O2SAT 96
[2021-03-04 04:40] LABS: Absolute Lymphocytes (CBC) 1.8 K/uL (0.7-4.9); Basophils % 0.5 % (0-1.3); Hematocrit 38.5 % (39.6-49.0); MPV 9.9 fL (7.6-11.3); RBC Red Blood Cell Count 4.51 M/uL (4.33-5.43)
[2021-03-04 05:02] LABS: Albumin 3.7 g/dL (3.4-5.0); Bilirubin Total 0.8 mg/dL (0.2-1.0); Magnesium 2.1 mg/dL (1.8-2.4); Protein, Total 7.3 g/dL (6.4-8.2)
[2021-03-04] MEDS: ENOXAPARIN 40 MG/0.4 ML SQ SCH (08:17)
[2021-03-04] MEDS: CLOPIDOGREL 75 MG TABLET PO SCH (08:18)
[2021-03-04] MEDS: FOLIC ACID 1 MG TABLET PO SCH (08:18)
[2021-03-04] MEDS: ASPIRIN EC 81 MG TAB PO SCH (08:18)
[2021-03-04] MEDS: NA CHLORIDE 0.9% 1,000 ML IV SCH (08:19)
[2021-03-04 08:24] VITALS: BP 151/104
[2021-03-04 08:59] VITALS: TEMP 97.9
[2021-03-04] MEDS ORDERED: NA CHLORIDE 0.9% 1,000 ML ONE (09:48)
--- NOTE | 2021-03-04 10:22 | RAD REPORT ---
EXAM DESCRIPTION: RAD - Chest Single View - 03/04/2021 10:03 am CLINICAL HISTORY: SOB Chest pain. COMPARISON: Chest Single View dated 03/02/2021; Chest Single View dated 01/06/2021; Chest Pa And Lat ( 2 Views) dated 10/07/2019; Chest Pa And Lat (2 Views) dated 11/04/2018 FINDINGS: Portable technique limits examination quality. The lungs are grossly clear. The heart is normal in size. No displaced fractures. IMPRESSION: No acute intrathoracic process suspected.
[2021-03-04] MEDS ORDERED: AMLODIPINE 5 MG TAB PO ONE (10:31)
--- NOTE | 2021-03-04 10:37 | P.DS ---
Admission Date: 03/02/21 Discharge Date: 03/04/21 Disposition: ROUTINE DISCHARGE Discharge Condition: GOOD Reason for Admission: Acute renal failure, left sided weakness Consultations: Nephrology Neurology Procedures: CXR (03/02): FINDINGS: No peripheral mass consolidation. No failure or volume overload. Heart size is exaggerated by lordotic positioning and low lung volumes. No vascular engorgement. No measurable pleural effusion and no pneumothorax. No acute bony abnormality seen. No acute aortic findings suspected. IMPRESSION: No acute cardiopulmonary process. No significant change from comparison study. CT Brain (03/02): FINDINGS: No intracranial hemorrhage is present. No cerebral edema, suspicious mass effect or midline shift. An acute cortical based infarction is not identifiable. Posterior right parieto-occipital diminished attenuation is present representing the expected aging of the CVA seen January 06. There is diminished attenuation in the right posterior limb internal capsule and lateral thalamus region also representing aging of a prior CVA. Patient has some patchy chronic ischemic change. Atrophy is minimal. No extra-axial fluid collections. Visualized portions of the mastoid air cells, paranasal sinuses, and orbits are without acute finding. Findings telephoned to Dr. Hassan 6:35 p.m. IMPRESSION: No intracranial hemorrhage is present. A new, acute CVA is not evident on this examination. Right parieto-occipital and right internal capsule diminished attenuation represents the expected aging of nonhemorrhagic infarctions seen January 06. U/S Renal (03/03): FINDINGS: Both kidneys are normal in size, shape and echotexture. The right kidney measures 11 x 5 cm. No hydronephrosis, focal mass or perinephric fluid. The left kidney measures 10 x 6 cm. No hydronephrosis, focal mass or perinephric fluid. Small benign cortical renal cyst left kidney. The urinary bladder is incompletely distended without gross abnormality seen. IMPRESSION: Benign left renal cyst, otherwise negative study. CXR (03/04): FINDINGS: Portable technique limits examination quality. The lungs are grossly clear. The heart is normal in size. No displaced fractures. IMPRESSION: No acute intrathoracic process suspected. Problem List Acute renal failure, prerenal secondary to hypovolemia/dehydration Left-sided weakness with recent history of ischemic CVA Hypertension, hyperlipidemia Brief History of Present Illness: 65-year-old male with history of hypertension, hyperlipidemia, right parietal and occipital CVAs presents emergency department for left upper and lower extremity weakness. Patient was seen here on 01/06/2021 and diagnosed with moderate to large right cerebral infarction in the right occipital/right parietal lobes and additional small area within the right frontal lobe. Patient was sent home as he is stable for discharge after evaluation by neurology and physical therapy on statin, aspirin, Plavix, folic acid in addition to his other medications, patient reportedly ran out of these medications approximately 2 weeks prior after seeing his PCP in did not get them refilled, has not been taking them for the last 2 weeks. Today patient was out doing yd work for about 2 hr in the hot sun after which he knows that he is having left upper and lower extremity weakness as well as a right-sided headache which was similar to symptoms during his previous acute CVA. Patient reports emergency department evaluation, labs significant for white blood cell count 12.6 creatinine 2.54 GFR 26, BUN 23, CT shows similar findings to previous without any acute changes. Case was discussed with neurology, patient not a candidate for t-PA due to recent CVA, patient's symptoms also improving relatively rapidly. Neurology would like to have a CT angio or MRI to evaluate for possibility of intervention and suggested possible transfer the patient refused transfer and was initially planning on leaving AMA. ED provider spoke with patient at length and he is willing to stay here in the hospital for further treatment but still refuses transfer for further evaluation. Hospital Course: Patient was continued on his home medications and treated with IVF. He had improvement / resolution of his VINAYAK and left sided weakness. He was feeling back to his normal self/baseline. CT did not reveal new stroke. MRI was unavailable, but would not have changed management. Patient was evaluated by PT and did well. Recommended to continue exercises at home. Patient was discharged home with refills for his medications, advised to f/u with PCP and obtain refills / not to miss any doses. Due to his VINAYAK, his losartan was held and discontinued on discharge. he was p rescribed norvasc. To f/u with PCP for further adjustments. Follow up with Nephrology in 2-3 weeks Follow up with Neurology as scheduled next month Follow up with PCP in 3-5 days. Vital Signs/Physical Exam: Physical Exam General: Alert, In no apparent distress HEENT: EOMI, sclera anicteric Respiratory: Clear to auscultation bilaterally, Normal air movement Cardiovascular: Regular rate/rhythm, Normal S1 S2 Abd: soft, nontender, nondistended Integumentary: No rashes MSK: mild swelling of L wrist/hand Neurological: Normal speech, Normal affect, abnormal strength (4+/5 strength in left wrist/hand, and 5/5 in left lower extremities) Temp Pulse Resp BP Pulse Ox 97.9 F 81 19 151/104 H 95 03/04/21 07:00 03/04/21 07:00 03/04/21 07:00 03/04/21 08:23 03/04/21 07:00 Laboratory Data at Discharge: WBC 8.10 K/uL (4.3-10.9) D 03/04/21 04:09 Hgb 13.1 g/dL (13.6-17.9) L 03/04/21 04:09 Hct 38.5 % (39.6-49.0) L 03/04/21 04:09 Plt Count 200 K/uL (152-406) 03/04/21 04:09 PT 12.7 SECONDS (9.5-12.5) H 03/02/21 18:30 INR 1.10 03/02/21 18:30 APTT 27.2 SECONDS (24.3-36.9) 03/02/21 18:30 Sodium 143 mmol/L (136-145) 03/04/21 04:09 Potassium 4.0 mmol/L (3.5-5.1) 03/04/21 04:09 BUN 21 mg/dL (7-18) H 03/04/21 04:09 Creatinine 1.13 mg/dL (0.55-1.3) 03/04/21 04:09 Glucose 96 mg/dL (74-106) 03/04/21 04:09 Uric Acid 7.7 mg/dL (3.5-7.2) H 03/03/21 05:30 Magnesium 2.1 mg/dL (1.8-2.4) 03/04/21 04:09 Total Bilirubin 0.8 mg/dL (0.2-1.0) 03/04/21 04:09 AST 25 U/L (15-37) 03/04/21 04:09 ALT 30 U/L (12-78) 03/04/21 04:09 Alkaline Phosphatase 62 U/L (45-117) 03/04/21 04:09 Triglycerides 193 mg/dL (<150) H 03/03/21 05:30 Cholesterol 128 mg/dL (<200) 03/03/21 05:30 HDL Cholesterol 36 mg/dL (40-60) L 03/03/21 05:30 Cholesterol/HDL Ratio 3.56 03/03/21 05:30 Home Medications: Trazodone [Desyrel*] 50 mg PO BEDTIME 01/06/21 Aspirin [Aspirin EC 81 MG] 81 mg PO DAILY 30 Days #30 tablet.dr 01/07/21 Folic Acid 1 mg PO DAILY 30 Days #30 tablet 01/07/21 Amlodipine Besylate [Norvasc] 5 mg PO DAILY 30 Days #30 tablet 03/04/21 Atorvastatin Calcium [Lipitor] 40 mg PO BEDTIME 30 Days #30 tab 03/04/21 Clopidogrel Bisulfate [Plavix*] 75 mg PO DAILY 30 Days #30 tablet 03/04/21 New Medications: Atorvastatin Calcium [Lipitor] 40 mg PO BEDTIME 30 Days #30 tab Amlodipine Besylate [Norvasc] 5 mg PO DAILY 30 Days #30 tablet Clopidogrel Bisulfate [Plavix*] 75 mg PO DAILY 30 Days #30 tablet Physician Discharge Instructions: You were found to be dehydrated with acute kidney failure, likely from not drinking enough water and working out in the heat. Your kidney function improved back to your normal range with IV fluids. CT scan was negative for new stroke. It is important that you take your medications and follow up with your PCP and Neurologist. You are discharged with refills for your medications. Please follow up with your PCP to obtain further refills. Stop taking your losartan, due to your recent acute renal failure. You are prescribed amlodipine instead. Continue to monitor your blood pressure and follow up with your PCP for further adjustments. Follow up with Nephrology in a few weeks. Diet: AHA Activity: Ad barbara Followup: Mary Ruano MD [ACTIVE - CAN ADMIT] - Jamar Stevens MD [Primary Care Provider] - Time spent managing pt's care (in minutes): 45
== END 2021-03-04 10:58 | disposition home or self-care (01) | DRG 684 ==
LOC: ER 17:59 → ERHOLD 22:19 → 2ND 03-03 00:55
PROVIDERS: ADMIT Hospitalist; ATTEND Hospitalist
DX: N17.9 Acute kidney failure, unspecified (principal); E86.0 Dehydration; E86.1 Hypovolemia; I10 Essential (primary) hypertension; E78.5 Hyperlipidemia, unspecified; R53.1 Weakness; Z86.73 Personal history of transient ischemic attack (TIA), and cerebral infarction without residual deficits; Z91.14 Patient's other noncompliance with medication regimen; Z20.822 Contact with and (suspected) exposure to COVID-19
CPT/HCPCS: 36415; 70450; 71045; 76770; 80048; 80053; 80061; 81003; 81015; 82550; 82947; 83735; 84439; 84443; 84550; 85025; 85610; 85730; 93005; 96374; 97116; 97161; 97530; 99285; J0360; J1650; J7030; J7040; U0003

== ENCOUNTER 2021-08-01 19:23 | Emergency (ER) | payer OTHER ==
[2021-08-01 19:46] LABS: Urine Blood 1+ (Negative); Urine Glucose Negative (Negative); Urine Protein 2+ (Negative); Urine Specific Gravity >=1.030 (1.005-1.030); Urine pH 5.5 (5.0-7.0)
[2021-08-01] MEDS ORDERED: FAMOTIDINE 20 MG/2 ML VIAL IV ONE (19:48)
[2021-08-01] MEDS ORDERED: NA CHLORIDE 0.9% 100 ML ONE (19:52)
[2021-08-01] MEDS ORDERED: CEFEPIME 1 GM/VIAL ONE (19:52)
[2021-08-01] MEDS ORDERED: LEVETIRACETAM 500 MG/5 ML VIAL IV ONE (19:52)
[2021-08-01] MEDS ORDERED: NA CHLORIDE 0.9% 2,000 ML ONE (19:53)
[2021-08-01 20:01] LABS: Arterial Blood Carboxyhemoglob 0.6 % (0-1.5); Blood Gas Oxyhemoglobin 95.4 % (94-97); Blood O2 Saturation 97.1 % (92-98.5)
[2021-08-01 20:06] LABS: Sodium Level 142 mmol/L (136-145)
--- NOTE | 2021-08-01 20:09 | RAD REPORT ---
EXAM DESCRIPTION: RAD - Chest Single View - 08/01/2021 7:57 pm CLINICAL HISTORY: COUGH, intubation COMPARISON: March 04 TECHNIQUE: AP portable chest image was obtained 08/01/2021 7:57 pm in supine positioning. FINDINGS: Lung volumes are low. This accentuates the interstitial pattern. No dense mass or consolid ations seen. Mild interstitial edema or infiltrate could be masked. Endotracheal tube has placed. Tip is top of the aortic arch, 4 cm above the mike. Cardiomediastinal silhouette accentuated by shallow inspiration supine exam. No abnormal vascular engorgement. No measurable pleural effusion and no pneumothorax. No acute bony abnormality seen. No acute aortic findings suspected. IMPRESSION: Endotracheal tube is in good position as detailed. No pulmonary edema or significant lung parenchymal process seen. Mild interstitial edema or infiltrat e could be masked.
[2021-08-01 20:15] LABS: Barbiturates NEGATIVE (NEGATIVE); Benzodiazepines POSITIVE (NEGATIVE); Cocaine NEGATIVE (NEGATIVE); METHAMPHETAM NEGATIVE (NEGATIVE); Methadone NEGATIVE (NEGATIVE); Opiates NEGATIVE (NEGATIVE); Phencyclidine NEGATIVE (NEGATIVE); THC Cannibis NEGATIVE (NEGATIVE)
[2021-08-01 20:15] LABS: Basophils % 0.4 % (0-1.3); Hematocrit 43.1 % (39.6-49.0); Lymphocytes % 18.8 % (15.3-44.8); MPV 9.7 fL (7.6-11.3)
[2021-08-01 20:18] LABS: ALT/SGPT 32 U/L (12-78); AST/SGOT 16 U/L (15-37); Albumin 3.8 g/dL (3.4-5.0); Alkaline Phosphatase 79 U/L (45-117); BUN Blood Urea Nitrogen 16 mg/dL (7-18); Bicarbonate 23 mmol/L (21-32); Bilirubin Direct 0.1 mg/dL (0-0.2); Bilirubin Total 0.3 mg/dL (0.2-1.0); Glucose Level 134 mg/dL (74-106); Magnesium 2.5 mg/dL (1.8-2.4); NT PRO-BNP 61 pg/mL (<125); Protein, Total 7.1 g/dL (6.4-8.2); Troponin (Emerg Dept Use Only) < 0.02 ng/mL (0.0-0.045)
[2021-08-01] MEDS ORDERED: MIDAZOLAM HCL 2 MG/2 ML INJ ONE ×4 (20:20→23:19)
[2021-08-01] MEDS ORDERED: propofoL 500 MG/50 ML ML IV ONE ×3 (20:21→23:20)
[2021-08-01 20:31] LABS: Protime INR 1.06
--- NOTE | 2021-08-01 20:55 | RAD REPORT ---
EXAM DESCRIPTION: CT - [id number] - 08/01/2021 8:35 pm CLINICAL HISTORY: Seizure, head and neck injury COMPARISON: Chest Single View dated 08/01/2021; Ct Stroke Brain Wo Cont dated 03/02/2021 TECHNIQUE: Axial 5 mm thick images of the head were obtained. Axial 2 mm thick images of the cervic al spine were obtained with sagittal and coronal reconstruction images generated and reviewed. All CT scans are performed using dose optimization technique as appropriate and may include automated exposure control or mA/KV adjustment according to patient size. FINDINGS: No intracranial hemorrhage, mass, edema or acute intracranial finding. No acute cortical b ased infarction. No significant atrophy seen. Ventricles are normal in size. Encephalomalacia changes are present posterior right parietal lobe from prior CVA. No cortical edema or sulcal effacement. Ar terial tree calcifications are present. No extra-axial fluid collections. Mastoid air cells are clear . Nasal passage and paranasal sinus opacification present not unexpected in an intubated patient. No globe or orbit abnormality seen. Cervical body height and alignment are normal. No disk space narrowing. No fracture or acute bony abn ormality. Central canal detail is inherently limited. No paraspinal mass or hematoma. OG/ET tubes in place IMPRESSION: Old right parietal CVA changes are present. No hemorrhage, mass or acute intracranial fi nding. Negative CT cervical spine examination for acute or significant finding.
--- NOTE | 2021-08-01 21:02 | ER ---
Nurse's Notes [facility] Name: Jamar Pedersen Age: 66 yrs Sex: Male : 1955 Arrival Date: 08/01/2021 Time: 19:30 Bed 3 Private MD: Diagnosis: Epileptic seizures related to external causes, not intractable;Acute respiratory failure-intubated;Essential (primary) hypertension Presentation: 08/01 19:34 Chief complaint: EMS states: EMS said family heard a thump and walked into pt room bs2 found pt on floor having a seizure, when EMS arrived pt was actively seizing. Coronavirus screen: At this time, the client does not indicate any symptoms associated with coronavirus-19. Ebola Screen: No symptoms or risks identified at this time. Initial Sepsis Screen: Does the patient meet any 2 criteria? Temp <36.0*C (96.8*F)) or > 38.3*C (100.9*F). Does the patient have a suspected source of infection? No. Patient's initial sepsis screen is negative. Risk Assessment: Do you want to hurt yourself or someone else? Patient reports no desire to harm self or others. Onset of symptoms was August 01, 2021 at 18:45. Care prior to arrival: Assisted ventilation, Oral intubation, Medication(s) given: 5mg Versed IM, 400mg Ketamine, 100 mg Succinylcholine, 100mg Etomidate IV initiated. 20 GA, in the right hand, 14ga Left AC Glucose check: 148 Oxygen administered. ET tube. Activity prior to arrival: None. 19:34 Method Of Arrival: EMS: [facility] bs2 19:34 Acuity: ISABEL 1 bs2 Triage Assessment: 19:34 General: Appears obese, Behavior is pt intubated. Pain: Unable to use pain scale. bs2 Patient is intubated. Neuro: pt intubated. Seizure activity reported prior to arrival. Historical: - Allergies: 19:35 Codeine; bs2 - PMHx: 19:35 BPH; CVA; Hypertension; bs2 - Immunization history:: pt just received 2nd dose of vaccine last week. - Social history:: Smoking status: unknown. - Family history:: not pertinent. Screenin:35 Abuse screen: Denies threats or abuse. Denies injuries from another. Nutritional bs2 screening: No deficits noted. Tuberculosis screening: No symptoms or risk factors identified. Fall Risk None identified. Assessment: 21:45 General: Appears obese, Behavior is unresponsive. Neuro: Level of Consciousness is bs2 unresponsive, unable to assess pt is intubated. Cardiovascular: Capillary refill < 3 seconds Patient's skin is warm and dry. Rhythm is sinus tachycardia. Respiratory: Ventilator assessment: ET Tube: 7.0 23 cm at lip. Tidal Volume: 600 Respiratory Rate: 18 FiO2: 60% PEEP: 5 HOB > 30 degrees. Suction provided. Breath sounds are clear bilaterally. Vital Signs: 19:30 BP 107 / 73; Pulse 105; Resp 22; Temp 96.3(C); Pulse Ox 100% on 60% FiO2 ETT vent; Pain bs2 0/10; 20:08 BP 172 / 110; Pulse 107; Resp 18; Temp 96.8(C); Pulse Ox 100% on 60% FiO2 ETT vent; bs2 20:10 BP 167 / 106; Pulse 101; Resp 22; Temp 96.8; Pulse Ox 100% on 60% FiO2 ETT vent; bs2 20:15 BP 185 / 121; Pulse 96; Resp 24; Temp 97.5(C); Pulse Ox 100% on 60% FiO2 ETT vent; bs2 20:30 BP 240 / 142; Pulse 94; Resp 19; Temp 97.5(C); Pulse Ox 100% on 60% FiO2 ETT vent; bs2 20:56 BP 161 / 114; Pulse 92; Resp 19; Temp 97.5(C); Pulse Ox 100% on 60% FiO2 ETT vent; bs2 21:00 BP 163 / 110; Pulse 88; Resp 18; Temp 97.9(C); Pulse Ox 100% on 60% FiO2 ETT vent; bs2 21:05 BP 161 / 114; Pulse 88; Resp 21; Temp 97.5; Pulse Ox 100% ; Weight 117.93 kg (R); tt3 Height 5 ft. 10 in. (177.80 cm) (R); 21:13 BP 171 / 104; Pulse 85; Resp 18; Temp 97.7(C); Pulse Ox 100% on 60% FiO2 ETT vent; bs2 21:30 BP 166 / 99; Pulse 82; Resp 18; Temp 97.9(C); Pulse Ox 100% on 60% FiO2 ETT vent; bs2 21:45 BP 148 / 102; Pulse 82; Resp 19; Temp 97.5(C); Pulse Ox 100% on 60% FiO2 ETT vent; bs2 22:00 BP 157 / 107; Pulse 78; Resp 18; Temp 97.7(C); Pulse Ox 100% on 60% FiO2 ETT vent; bs2 22:15 BP 161 / 110; Pulse 74; Resp 18; Temp 97.7(C); Pulse Ox 100% on 60% FiO2 ETT vent; bs2 22:30 BP 139 / 90; Pulse 74; Resp 18; Temp 97.7; Pulse Ox 100% on 60% FiO2 ETT vent; bs2 22:45 BP 143 / 99; Pulse 72; Resp 18; Temp 97.9(C); Pulse Ox 100% on 60% FiO2 ETT vent; bs2 23:00 BP 148 / 96; Pulse 72; Resp 18; Temp 97.7(C); Pulse Ox 100% on 60% FiO2 ETT vent; bs2 23:06 BP 148 / 102; Pulse 82; Resp 18; Temp 97.5(C); Pulse Ox 100% ; Pain 0/10; bs2 23:15 BP 154 / 97; Pulse 71; Resp 18; Temp 98.1(C); Pulse Ox 100% on 60% FiO2 ETT vent; bs2 21:05 Body Mass Index 37.31 (117.93 kg, 177.80 cm) tt3 [place] Coma Score: 19:34 Eye Response: none(1). Verbal Response: none(1). Motor Response: none(1). Modifying bs2 Factors: Intubated. Total: 3. ED Course: 19:30 Patient arrived in ED. em 19:30 Evan Langley MD is Attending Physician. abelardo 19:34 Arm band placed on left wrist. bs2 19:35 Maintain EMS IV. Dressing intact. Good blood return noted. Site clean \\T\\ dry. Gauge \\T\\ bs 2 site: 20ga RT hand, 14ga LT AC. Assist ventilation with ventilator. 19:35 Placed in gown. Bed in low position. Side rails up X2. Seizure precautions initiated. bs2 equipment monitor phototypesetting on. Pulse ox on. NIBP on. Warm blanket given. 19:53 Acetaminophen Sent. kc4 19:53 ETOH Level Sent. kc4 19:53 Salicylate Sent. kc4 19:54 Urine Drug Screen Sent. kc4 19:57 XRAY Chest (1 view) In Process Unspecified. EDMS 20:01 SARS-COV-2 RT PCR (Document "Date of Onset" if Symptomatic) Sent. kc4 20:01 Lactate Sent. kc4 20:01 Blood Culture Adult (2) Sent. kc4 20:02 PTT, Activated Partial Thromb Sent. kc4 20:02 Basic Metabolic Panel Sent. kc4 20:02 CBC with Diff Sent. kc4 20:02 LFT's Sent. kc4 20:02 Magnesium Sent. kc4 20:02 NT PRO-BNP Sent. kc4 20:02 PT-INR Sent. kc4 20:02 Troponin (emerg Dept Use Only) Sent. kc4 20:13 Zayda Fisher is Primary Nurse. kc4 20:15 Initial lab(s) drawn, by me, sent to lab. Second set of blood cultures drawn by ED bs2 staff, Urine collected: Vallecillo catheter specimen, clear, Amount Returned: 50mL EKG done, by ED staff, reviewed by Evan Langley MD COVID swab sent to lab. Vallecillo cath inserted, using sterile technique, 18 Fr., by me, balloon inflated, urine specimen collected. other Temp sensing vallecillo returned clear yellow urine. Patient tolerated well. Thermoregulation: warm blanket given to patient. 20:31 Blood Culture Adult (2) Sent. kc4 20:31 PTT, Activated Partial Thromb Sent. kc4 20:35 CT Head C Spine In Process Unspecified. EDMS 20:53 XRAY Chest (1 view) In Process Unspecified. EDMS 21:07 Initiated transfer at [facility] with Mary Hector. Stated she would work on the tt3 request and call back. 23:04 Blood Culture Adult (2) Sent. bs2 23:43 Triage completed. bs2 23:55 No provider procedures requiring assistance completed. Patient transferred, IV remains bs2 in place. Administered Medications: 19:49 Drug: Pepcid (famotidine) 20 mg Route: IVP; Site: left antecubital; kc4 21:51 Follow up: Response: No adverse reaction bs2 20:01 Drug: NS 0.9% 1000 ml Route: IV; Rate: 1 bolus; Site: left antecubital; 4 23:06 Follow up: IV Status: Completed infusion bs2 20:01 Drug: Keppra (levETIRAcetam) 1000 mg Route: IV; Rate: per protocol; Site: left 4 antecubital; 23:04 Follow up: IV Status: Completed infusion bs2 20:14 Drug: Cefepime 1 grams Route: IVPB; Rate: 200 ml/hr; Infused Over: 30 mins; Site: left [facility] hand; 21:51 Follow up: IV Status: Completed infusion bs2 20:31 Drug: NS 0.9% 1000 ml Route: IV; Rate: 125 ml/hr; Site: left antecubital; 4 23:05 Follow up: IV Status: Infusion continued upon transfer bs2 20:35 Drug: Propofol 5 mcg/kg/min Route: IV; Rate: calculated rate; Site: left antecubital; bs2 20:50 Follow up: Rate change 10 mcg/min bs2 21:00 Follow up: Rate change 20 mcg/min bs2 21:10 Follow up: Rate change 30 mcg/min bs2 21:30 Follow up: Rate change 40 mcg/min bs2 21:50 Follow up: Rate change 50 mcg/min bs2 23:06 Follow up: IV Status: Infusion continued upon transfer bs2 20:42 Drug: Versed (midazolam) 4 mg Route: IVP; Site: left antecubital; 4 21:51 Follow up: Response: No adverse reaction bs2 20:55 Drug: Versed (midazolam) 4 mg Route: IVP; Site: right hand; bs2 21:51 Follow up: Response: No adverse reaction bs2 21:50 Drug: Versed (midazolam) 4 mg Route: IVP; Site: right hand; bs2 21:51 Follow up: Response: No adverse reaction bs2 21:50 Drug: fentaNYL (PF) 50 mcg Route: IVP; Site: right hand; bs2 21:51 Follow up: Response: No adverse reaction bs2 21:50 Drug: Zofran (Ondansetron) 4 mg Route: IVP; Site: right hand; bs2 21:52 Follow up: Response: No adverse reaction bs2 23:25 Drug: Versed (midazolam) 4 mg Route: IVP; Site: left antecubital; bs2 23:47 Follow up: Response: No adverse reaction bs2 23:25 Drug: fentaNYL (PF) 50 mcg Route: IVP; Site: left antecubital; bs2 23:47 Follow up: Response: No adverse reaction bs2 Point of Care Testing: Blood Glucose: 19:30 Blood Glucose: 137 mg/dL; em Ranges: Ventilator: 19:35 Fi02: 60%; Rate: 18min; T.V.: 600ml; Peep: 5cm; ET tube: 7 fr (Oral); bs2 Outcome: 21:01 ER care complete, transfer ordered by MD. zhou 23:55 [facility]red [facility] ground [facility] [place] [facility] [facility]. bs2 X-rays sent w/ patient. 23:55 Condition: stable 23:55 Instructed on the need for transfer. 08/02 00:11 Patient left the ED. bs2 Signatures: Dispatcher [employer] Evan Haji MD MD cha Munoz, Edgar, RN RN Arron Rm tt3 Marleni Hoffmann RN RN bs2 Zayda Fisher kc4
--- NOTE | 2021-08-01 21:02 | EDPHYS ---
Physician Documentation [facility] Name: Jamar Pedersen Age: 66 yrs Sex: Male : 1955 Arrival Date: 08/01/2021 Time: 19:30 Bed 3 Private MD: ED Physician Evan Langley HPI: 08/01 19:34 This 66 yrs old Male presents to ER via Unassigned with complaints of abelardo Probable Seizure, Unresponsive. 19:34 The patient presents after having a single isolated seizure, that lasted an unknown abelardo period of time. Character of seizure(s): Loss of consciousness: the patient experienced loss of consciousness, Motor activity: generalized, Incontinence: none. Seizure onset: just prior to arrival. Context: the seizure(s) was witnessed, by EMS personnel, by family. Seizure Hx: the patient has no previous seizure history. Associated injury: The patient did not suffer any apparent associated injury. EMS care: intubation, oral. The patient has not experienced similar symptoms in the past. Historical: - Allergies: 19:35 Codeine; bs2 - PMHx: 19:35 BPH; CVA; Hypertension; bs2 - Immunization history:: pt just received 2nd dose of vaccine last week. - Social history:: Smoking status: unknown. - Family history:: not pertinent. ROS: 19:34 Unable to obtain ROS due to patient is on ventilator. abelardo Exam: 19:34 Head/Face: Normocephalic, atraumatic. Eyes: Pupils equal round and reactive to light, abelardo extra-ocular motions intact. Lids and lashes normal. Conjunctiva and sclera are non-icteric and not injected. Cornea within normal limits. Periorbital areas with no swelling, redness, or edema. ENT: Nares patent. No nasal discharge, no septal abnormalities noted. Tympanic membranes are normal and external auditory canals are clear. Oropharynx with no redness, swelling, or masses, exudates, or evidence of obstruction, uvula midline. Mucous membranes moist. Neck: Trachea midline, no thyromegaly or masses palpated, and no cervical lymphadenopathy. Supple, full range of motion without nuchal rigidity, or vertebral point tenderness. No Meningismus. Chest/axilla: Normal chest wall appearance and motion. Nontender with no deformity. No lesions are appreciated. Respiratory: Lungs have equal breath sounds bilaterally, clear to auscultation and percussion. No rales, rhonchi or wheezes noted. No increased work of breathing, no retractions or nasal flaring. Abdomen/GI: Soft, non-tender, with normal bowel sounds. No distension or tympany. No guarding or rebound. No evidence of tenderness throughout. Back: No spinal tenderness. No costovertebral tenderness. Full range of motion. Male : Normal genitalia with no discharge or lesions. Skin: Warm, dry with normal turgor. Normal color with no rashes, no lesions, and no evidence of cellulitis. MS/ Extremity: Pulses equal, no cyanosis. Neurovascular intact. Full, normal range of motion. Psych: Awake, alert, with orientation to person, place and time. Behavior, mood, and affect are within normal limits. 19:34 Constitutional: The patient appears in obvious distress, intubated. 19:34 ECG was reviewed by the Attending Physician. 19:34 Respiratory: intubated. Vital Signs: 19:30 BP 107 / 73; Pulse 105; Resp 22; Temp 96.3(C); Pulse Ox 100% on 60% FiO2 ETT vent; Pain bs2 0/10; 20:08 BP 172 / 110; Pulse 107; Resp 18; Temp 96.8(C); Pulse Ox 100% on 60% FiO2 ETT vent; bs2 20:10 BP 167 / 106; Pulse 101; Resp 22; Temp 96.8; Pulse Ox 100% on 60% FiO2 ETT vent; bs2 20:15 BP 185 / 121; Pulse 96; Resp 24; Temp 97.5(C); Pulse Ox 100% on 60% FiO2 ETT vent; bs2 20:30 BP 240 / 142; Pulse 94; Resp 19; Temp 97.5(C); Pulse Ox 100% on 60% FiO2 ETT vent; bs2 20:56 BP 161 / 114; Pulse 92; Resp 19; Temp 97.5(C); Pulse Ox 100% on 60% FiO2 ETT vent; bs2 21:00 BP 163 / 110; Pulse 88; Resp 18; Temp 97.9(C); Pulse Ox 100% on 60% FiO2 ETT vent; bs2 21:05 BP 161 / 114; Pulse 88; Resp 21; Temp 97.5; Pulse Ox 100% ; Weight 117.93 kg (R); tt3 Height 5 ft. 10 in. (177.80 cm) (R); 21:13 BP 171 / 104; Pulse 85; Resp 18; Temp 97.7(C); Pulse Ox 100% on 60% FiO2 ETT vent; bs2 21:30 BP 166 / 99; Pulse 82; Resp 18; Temp 97.9(C); Pulse Ox 100% on 60% FiO2 ETT vent; bs2 21:45 BP 148 / 102; Pulse 82; Resp 19; Temp 97.5(C); Pulse Ox 100% on 60% FiO2 ETT vent; bs2 22:00 BP 157 / 107; Pulse 78; Resp 18; Temp 97.7(C); Pulse Ox 100% on 60% FiO2 ETT vent; bs2 22:15 BP 161 / 110; Pulse 74; Resp 18; Temp 97.7(C); Pulse Ox 100% on 60% FiO2 ETT vent; bs2 22:30 BP 139 / 90; Pulse 74; Resp 18; Temp 97.7; Pulse Ox 100% on 60% FiO2 ETT vent; bs2 22:45 BP 143 / 99; Pulse 72; Resp 18; Temp 97.9(C); Pulse Ox 100% on 60% FiO2 ETT vent; bs2 23:00 BP 148 / 96; Pulse 72; Resp 18; Temp 97.7(C); Pulse Ox 100% on 60% FiO2 ETT vent; bs2 23:06 BP 148 / 102; Pulse 82; Resp 18; Temp 97.5(C); Pulse Ox 100% ; Pain 0/10; bs2 23:15 BP 154 / 97; Pulse 71; Resp 18; Temp 98.1(C); Pulse Ox 100% on 60% FiO2 ETT vent; bs2 21:05 Body Mass Index 37.31 (117.93 kg, 177.80 cm) tt3 [place] Coma Score: 19:34 Eye Response: none(1). Verbal Response: none(1). Motor Response: none(1). Modifying bs2 Factors: Intubated. Total: 3. Ventilator: 19:35 Fi02: 60%; Rate: 18min; T.V.: 600ml; Peep: 5cm; ET tube: 7 fr (Oral); bs2 MDM: 19:30 Patient medically screened. abelardo 19:38 Differential diagnosis: cerebral vascular accident, drug overdose, cardiac arrhythmia, abelardo seizure, TIA. Data reviewed: vital signs, nurses notes, lab test result(s), EKG, radiologic studies, CT scan, plain films. Data interpreted: school bus monitor: rate is 106 beats/min, rhythm is regular, Pulse oximetry: on room air is 100 %. Test interpretation: by ED physician or midlevel provider: ECG, plain radiologic studies. Counseling: I had a detailed discussion with the patient and/or guardian regarding: the historical points, exam findings, and any diagnostic results supporting the discharge/admit diagnosis, lab results, radiology results, the need to transfer to another facility, for higher level of care, [facility] does not immediately have the required specialist. 08/01 19:32 Order name: Basic Metabolic Panel; Complete Time: 20:52 [facility] 08/01 19:32 Order name: CBC with Diff; Complete Time: 20:52 [facility] 08/01 19:32 Order name: LFT's; Complete Time: 20:52 [facility] 08/01 19:32 Order name: Magnesium; Complete Time: 20:52 [facility] 08/01 19:32 Order name: NT PRO-BNP; Complete Time: 20:52 [facility] 08/01 19:32 Order name: PT-INR; Complete Time: 20:52 [facility] 08/01 19:32 Order name: Troponin (emerg Dept Use Only); Complete Time: 20:52 [facility] 08/01 19:32 Order name: SARS-COV-2 RT PCR (Document "Date of Onset" if Symptomatic); Complete Time: abelardo 21:21 08/01 19:34 Order name: Acetaminophen; Complete Time: 20:52 [facility] 08/01 19:34 Order name: ETOH Level; Complete Time: 20:52 [facility] 08/01 19:34 Order name: Salicylate; Complete Time: 20:52 [facility] 08/01 19:34 Order name: Urine Drug Screen; Complete Time: 20:52 [facility] 08/01 19:32 Order name: XRAY Chest (1 view); Complete Time: 20:52 [facility] 08/01 19:34 Order name: CT Head C Spine; Complete Time: 20:59 [facility] 08/01 19:41 Order name: Glucose, Ancillary Testing; Complete Time: 19:50 EDMS 08/01 19:45 Order name: ABG; Complete Time: 20:52 [facility] 08/01 19:46 Order name: Urine Dipstick-Ancillary; Complete Time: 19:50 [facility] 08/01 19:47 Order name: PTT, Activated Partial Thromb; Complete Time: 20:52 [facility] 08/01 19:52 Order name: Blood Culture Adult (2) [facility] 08/01 20:43 Order name: XRAY Chest (1 view); Complete Time: 21:21 [facility] 08/01 19:32 Order name: EKG; Complete Time: 19:32 [facility] 08/01 19:32 Order name: Cardiac monitoring; Complete Time: 20:02 [facility] 08/01 19:32 Order name: EKG - Nurse/Tech; Complete Time: 20:02 [facility] 08/01 19:32 Order name: IV Saline Lock; Complete Time: 20:02 [facility] 08/01 19:32 Order name: Labs collected and sent; Complete Time: 20:02 [facility] 08/01 19:32 Order name: O2 Per Protocol; Complete Time: 20:02 [facility] 08/01 19:32 Order name: O2 Sat Monitoring; Complete Time: 20:02 [facility] 08/01 19:34 Order name: Urine Dipstick-Ancillary (obtain specimen); Complete Time: 20:02 [facility] 08/01 20:14 Order name: [place]; Complete Time: 20:31 [facility] EC:34 Rate is 106 beats/min. Rhythm is regular. QRS [place] is Normal. IA interval is normal. [facility] QRS interval is normal. QT interval is normal. No Q waves. T waves are Normal. No ST changes noted. Clinical impression: Sinus tachycardia and No evidence of ischemia. Interpreted by me. Reviewed by me. Administered Medications: 19:49 Drug: Pepcid (famotidine) 20 mg Route: IVP; Site: left antecubital; 4 21:51 Follow up: Response: No adverse reaction bs2 20:01 Drug: NS 0.9% 1000 ml Route: IV; Rate: 1 bolus; Site: left antecubital; 4 23:06 Follow up: IV Status: Completed infusion bs2 20:01 Drug: Keppra (levETIRAcetam) 1000 mg Route: IV; Rate: per protocol; Site: left kc4 antecubital; 23:04 Follow up: IV Status: Completed infusion bs2 20:14 Drug: Cefepime 1 grams Route: IVPB; Rate: 200 ml/hr; Infused Over: 30 mins; Site: left kc hand; 21:51 Follow up: IV Status: Completed infusion bs2 20:31 Drug: NS 0.9% 1000 ml Route: IV; Rate: 125 ml/hr; Site: left antecubital; 4 23:05 Follow up: IV Status: Infusion continued upon transfer bs2 20:35 Drug: Propofol 5 mcg/kg/min Route: IV; Rate: calculated rate; Site: left antecubital; bs2 20:50 Follow up: Rate change 10 mcg/min bs2 21:00 Follow up: Rate change 20 mcg/min bs2 21:10 Follow up: Rate change 30 mcg/min bs2 21:30 Follow up: Rate change 40 mcg/min bs2 21:50 Follow up: Rate change 50 mcg/min bs2 23:06 Follow up: IV Status: Infusion continued upon transfer bs2 20:42 Drug: Versed (midazolam) 4 mg Route: IVP; Site: left antecubital; [facility] 21:51 Follow up: Response: No adverse reaction bs2 20:55 Drug: Versed (midazolam) 4 mg Route: IVP; Site: right hand; bs2 21:51 Follow up: Response: No adverse reaction bs2 21:50 Drug: Versed (midazolam) 4 mg Route: IVP; Site: right hand; bs2 21:51 Follow up: Response: No adverse reaction bs2 21:50 Drug: fentaNYL (PF) 50 mcg Route: IVP; Site: right hand; bs2 21:51 Follow up: Response: No adverse reaction bs2 21:50 Drug: Zofran (Ondansetron) 4 mg Route: IVP; Site: right hand; bs2 21:52 Follow up: Response: No adverse reaction bs2 23:25 Drug: Versed (midazolam) 4 mg Route: IVP; Site: left antecubital; bs2 23:47 Follow up: Response: No adverse reaction bs2 23:25 Drug: fentaNYL (PF) 50 mcg Route: IVP; Site: left antecubital; bs2 23:47 Follow up: Response: No adverse reaction bs2 Point of Care Testing: Blood Glucose: 19:30 Blood Glucose: 137 mg/dL; em Ranges: Critical Glucose Levels:Adult <50 mg/dl or >400 mg/dl <40 mg/dl or >180 mg/dl Disposition Summary: 08/01/21 21:01 Transfer Ordered Transfer Location: [facility] abelardo Reason: Higher level of care abelardo Condition: Fair abelardo Problem: new abelardo Symptoms: have improved abelardo Accepting Physician: to nicu(08/02/21 00:11) bs2 Diagnosis - Epileptic seizures related to external causes, not intractable abelardo - Acute respiratory failure - intubated abelardo - Essential (primary) hypertension abelardo Forms: - Medication Reconciliation Form abelardo - SBAR form abelardo Signatures: Dispatcher [employer] EDvEan Moon MD MD cha Munoz, Edgar RN RN em Efrain Medina, FIELD NATURALIST-C FIELD NATURALIST-Cla1 Marleni Hoffmann RN RN bs2 Zayda Fisher kc4 Corrections: (The following items were deleted from the chart) 19:33 19:32 SARS-COV-2 RT PCR+MOL.LAB.BRZ ordered. EDMS EDMS 19:47 19:35 PTT, ACTIVATED+COAG.LAB.BRZ ordered. EDMS EDMS 23:04 19:34 Suicide Screening ([place]) ordered. abelardo bs2 08/02 00:11 11 21:01 to nicu abelardo bs2
--- NOTE | 2021-08-01 21:08 | RAD REPORT ---
EXAM DESCRIPTION: RAD - Chest Single View - 08/01/2021 8:53 pm CLINICAL HISTORY: OG placedment COMPARISON: August 01 TECHNIQUE: AP portable chest image was obtained 08/01/2021 8:53 pm . FINDINGS: Limited chest examination to include the lower lung last and upper abdomen shows OG tube placement. Tube is curled in the proximal stomach in good position. Stomach is decompressed. IMPRESSION: OG tube has been placed into the proximal stomach. Stomach is decompressed.
[2021-08-01] MEDS ORDERED: FENTANYL CITR 100 MCG/2 ML ONE ×2 (21:34→23:19)
[2021-08-01] MEDS ORDERED: ONDANSETRON 4 MG/2 ML VIAL ONE (21:35)
[2021-08-02 00:26] VITALS: O2SAT 100
[2021-08-02 00:52] VITALS: BP 154/97; TEMP 98.1
--- NOTE | 2021-08-02 20:37 | EKG ---
Test Date: 2021-08-01 Test Time: 19:25:11 Wheel Installer: EVANGELINA MEASUREMENT RESULTS: Intervals: Rate: 106 OR: 170 QRSD: 142 QT: 380 QTc: 504 [place]: P: 49 OR: 170 QRS: -15 T: 12 INTERPRETIVE STATEMENTS: Sinus tachycardia Right bundle branch block Inferior infarct, age undetermined Abnormal ECG Compared to ECG 03/02/2021 20:07:24 Myocardial infarct finding now present Sinus rhythm no longer present T-wave abnormality no longer present Possible ischemia no longer present Electronically Signed On 08-02-21 20:35:07 TESTS SUPERINTENDENT by London Deleon
--- OUTSIDE RECORDS SUMMARY | 2021-08-03 22:06 | XMS REPORT | Continuity of Care Document ---
:1955 Author Organization [facility] t Address [address] [place] [address] Care Team Providers Name Role Phone NIALL ROBLES Attending Clinician Unavailable NANCY CHRISTY Attending Clinician Unavailable ALIVIA QUISPE I. Attending Clinician Unavailable Roderick QUISPE Admitting Clinician Unavailable Payers Payer Name Policy Type Policy Number Effective Date Expiration Date S ource MEDICARE A B [id number] 2020 00:00:00 Problems This patient has no known problems. Allergies, Adverse Reactions, Alerts Allergy Allergy Status Severity Reaction(s) Onset Inactive Treating Comm ents Source Name Type Date Date Clinician CODEINE Allergy Active 2020-09 [facility] 10-02 00:00: 00 NO KNOWN Allergy Active [facility] Medications This patient has no known medications. Vital Signs Vital Name Observation Time Observation Value Comments Source WEIGHT 2021-08-02 03:00:00 109.9 kg WEIGHT 2021-08-02 03:00:00 109.9 kg Procedures This patient has no known procedures. Encounters Start End Encounter Admission Attending Care Care Encounter Source Date/Time Date/Time Type Type Clinicians Facility Department ID 2021-08-02 Inpatient ER TRAVIS [facility] Neuro ICU [id number] [facility] 02:19:00 , NIALL 2021-09-04 2021-09-04 [facility] [id number] [facility] 00:00:00 00:00:00 NANCY Results Test Description Test Time Test Comments Results Result Comments Source CREATINE KINASE (CK) 2021-08-03 16:22:35 Test Item Value Reference Range Interpretation Comme nts CREATINE KINASE TOTAL (BEAKER) (test code = 380) 3144 U/L 29-20 0 H Manager Financial Services ID - FANNIE GEEG W VID 12-26 HR CONTINUOUS MONITORING (VEEG)2021-08-03 11:37:00[facility] : 1955 [facility]: 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 MEDICATIONS THAT COULD AFFECT EEG: levetiracetam, propofol TECHNICAL SUMMARY: This is a [facility] digital video EEG recorded with 32 input channels reviewed with bipolar and referential montages using the modified combinatorial system nomenclature. DESCRIPTION OF RECORD: During the maximally alert state, a fairly well-developed and modulated 8-9 Hz posterior dominant rhythm was seen that wasasymmetric, better defined over left hemisphere and reactive to eye opening. Low voltage beta activity predominated anteriorly in bilateral frontal regions but decreased over the right hemisphere. Intermittent theta slowing is seen in a generalized distribution that becomes less prominent as the recording proceeds but is still persistent during wakefulness by the end of the epoch. Continuous 1-2 Hz slowing is seen over the right hemisphere. . During drowsiness, there is an attenuation of a posterior dominant rhythm and an increase in fronto-central theta. Stage 2 sleep was reached and characterized by asymmetric sleep spindles and K-complexes, better seen over left hemisphere. INTERICTAL EPILEPTIFORM DISCHARGES: None. EVENTS/SEIZURES: None. HV: Hyperventilation was not done. PHOTIC STIMULATION: Not performed ELECTROCARDIOGRAM EVENTS: Regular Sinus Rhythm. IMPRESSION: Abnormal video EEG Continuous slow, lateralized right hemisphere Intermittent slow, generalized CLINICAL CORRELATION: This day 2 of continuous EEG monitoring is suggestive of focal dysfunction over the right hemisphere with a superimposed mild encephalopathy. The degree of encephalopathy improved over the course of the recording. No epileptiform discharges or electrographic seizures were seen during this epoch. Behzad Rodriguez MD, MSCI Clinical Neurophysiology/Epilepsy Attending LACTIC ACID, [id number] 11:13:21 Test Item Value Reference Range Interpretation Comments LACTATE BLOOD VENOUS 1.80 mmol/L 0.50-2.20 Specime n slightly (2) (BEAKER) (test hemolyzed code = 2872) Manager Financial Services ID - FANNIE GLACTATE DEHYDROGENASE (LDH)2021-08-03 11:08:21 Test Item Value Reference Range Interpretation Comments LACTATE DEHYDROGENASE 460 U/L 125-220 H Specim en slightly (BEAKER) (test code = hemoly zed 635) Manager Financial Services ID - DBRAD, CHEST, 1 VIEW, NON [id number] 08:35:00Reason for exam:- >IntubatedShould this be performed at the bedside?->Yes [facility] Morris : 1955 Sex: MFINAL REPORT RAD, CHEST, 1 VIEW, NON DEPT INDICATION: Intubated COMPARISON: None FINDINGS: Portable frontal view of the chest. IMPRESSION: Support Lines: Overlying leadsLungs and pleura: Unchanged diffuse interstitial thickening, representing singly or in combination, interstitial edema and/or pneumonitis. No significant pneumothorax. Heart and mediastinum: Normal cont ours. Additional findings: None. Signed: Rama Singleton MDReport Verified Date/Time: 08/03/2021 08:35:30 POCT-GLUCOSE [id number] 06:22:39 Test Item Value Reference Range Interpretation Comments POC-GLUCOSE METER 109 mg/dL 70-110 : [facility] (BE[facility]ER) (test code = EMEKA LAZO [place], 1538) [address]: Manager Financial Services/Techni yari ID = [id number] for [facility] REL[facility], BECKA [id number] 05:14:16 Test Item Value Reference Range Interpretation Comments PHOSPHORUS (BEAKER) 3.8 mg/dL 2.3-4.7 Specimen slightly (test code = 604) hemolyzed Manager Financial Services ID - DBBASIC METABOLIC [id number] 05:14:16 Test Item Value Reference Range Interpretation Comments SODIUM (BEAKER) 140 meq/L 136-145 (test code = 381) POTASSIUM (BEAKER) 4.3 meq/L 3.5-5.1 Specimen slightly (test code = 379) hemolyzed CHLORIDE (BEAKER) 110 meq/L 98-107 H (test code = 382) CO2 (BEAKER) (test 21 meq/L 22-29 L code = 355) BLOOD UREA NITROGEN 16 mg/dL 7-21 (BEAKER) (test code = 354) CREATININE (BEAKER) 1.30 mg/dL 0.57-1.25 H Specimen slightly (test code = 358) hemolyzed GLUCOSE RANDOM 115 mg/dL 70-105 H (BEAKER) (test code = 652) CALCIUM (BEAKER) 8.9 mg/dL 8.4-10.2 (test code = 697) EGFR (BEAKER) (test 55 mL/min/1.73 ESTIMA RIA GFR IS code = 1092) sq m NOT ACCURATE CREATININE CLEARANCE IN PREDICTING GLOMERULAR FILTRATION RATE . ESTIMATED GFR I S NOT APPLICABLE FOR DIALYSIS PATIEN TS. Manager Financial Services ID - [id number] 05:14:15 Test Item Value Reference Range Interpretation Comments MAGNESIUM (BEAKER) 2.1 mg/dL 1.6-2.6 Specimen slightly (test code = 627) hemolyzed Manager Financial Services ID - DBCBC W/PLT COUNT & AUTO [id number] 05:04:58 Test Item Value Reference Range Interpretation Comments WHITE BLOOD CELL COUNT (BEAKER) 14.1 K/ L 3.5-10.5 H (test code = 775) RED BLOOD CELL COUNT (BEAKER) 4.44 M/ L 4.63-6.08 L (test code = 761) HEMOGLOBIN (BEAKER) (test code = 12.9 GM/DL 13.7-17.5 L 410) HEMATOCRIT (BEAKER) (test code = 40.1 % 40.1-51.0 411) MEAN CORPUSCULAR VOLUME (BEAKER) 90.3 fL 79.0-92.2 (test code = 753) MEAN CORPUSCULAR HEMOGLOBIN 29.1 pg 25.7-32.2 (BEAKER) (test code = 751) MEAN CORPUSCULAR HEMOGLOBIN CONC 32.2 GM/DL 32.3-36.5 L (BEAKER) (test code = 752) RED CELL DISTRIBUTION WIDTH 13.9 % 11.6-14.4 (BEAKER) (test code = 412) PLATELET COUNT (BEAKER) (test 170 K/CU MM 150-450 code = 756) MEAN PLATELET VOLUME (BEAKER) 11.4 fL 9.4-12.4 (test code = 754) NUCLEATED RED BLOOD CELLS 0 /100 WBC 0-0 (BEAKER) (test code = 413) NEUTROPHILS RELATIVE PERCENT 80 % (BEAKER) (test code = 429) LYMPHOCYTES RELATIVE PERCENT 10 % (BEAKER) (test code = 430) MONOCYTES RELATIVE PERCENT 9 % (BEAKER) (test code = 431) EOSINOPHILS RELATIVE PERCENT 1 % (BEAKER) (test code = 432) BASOPHILS RELATIVE PERCENT 0 % (BEAKER) (test code = 437) NEUTROPHILS ABSOLUTE COUNT 11.27 K/ L 1.78-5.38 H (BEAKER) (test code = 670) LYMPHOCYTES ABSOLUTE COUNT 1.41 K/ L 1.32-3.57 (BEAKER) (test code = 414) MONOCYTES ABSOLUTE COUNT (BEAKER) 1.20 K/ L 0.30-0.82 H (test code = 415) EOSINOPHILS ABSOLUTE COUNT 0.11 K/ L 0.04-0.54 (BEAKER) (test code = 416) BASOPHILS ABSOLUTE COUNT (BEAKER) 0.04 K/ L 0.01-0.08 (test code = 417) IMMATURE GRANULOCYTES-RELATIVE 1 % 0-1 PERCENT (BEAKER) (test code = 2801) SARS-COV2/RT-PCR ([facility])2021-08-03 02:57:13 Test Item Value Reference Range Interpretation Comments SARS-COV2/RT-PCR (test code = Negative Negative [id number]) Negative result for this test determines that SARS-CoV-2 RNA was not present in the specimen above the Limit of Detection (LOD). However, Negative results do not preclude SARS-CoV-2 infection and should not be used as the sole basis for treatment or patient management decisions. Negative results must be combined with clinical observations, patient history, and epidemiological information. A false negative result may occur if a specimen is improperly collected, transported, or handled. A false negative result should be considered if patient's recent exposures or clinical presentation indicate that COVID-19 (SARS-CoV-2) is likely and diagnostic tests for other causes of illness are negative. Re-testing should be considered in cases of suspected false negatives.The limit of detection for this assay is 100 copies/mL.This SARS-CoV-2 test is a real-time RT_PCR test intended for the qualitative detection of nucleic acid from SARS-CoV-2 in a nasopharyngeal swab specimen collected from individuals suspected of COVID-19 by their healthcare provider.This test has not been Food and Drug Administration (FDA) cleared or approved. This is a modified version of an approved Emergency Use Authorization (EUA) and is in the process of review by the FDA. Once authorized by the FDA, the issued EUA will be e ffective until the declaration that circumstances exist justifying the authorization of the emergency use of in vitro diagnostic tests for detection and/or diagnosis of COVID-19 is terminated under Section 564(b)(2) of the Act or the EUA is revoked under Section 564(g) of the Act.Testing was performedusing the Shangby SARS-CoV-2 assay.Fact Sheet for Healthcare Providers:https://www.molecular.garza/pipo/RT SARS-CoV-2 HCP Fact Sheet 51- 207002.pdfFact Sheet for Healthcare Patients:https://www.Kaesu.[facility]/pipo/RT SARS-CoV-2 Patient Fact Sheet EN 51-831377M6.pdfPOCT-GLUCOSE QUMIA2018-44-94 00:51:57 Test Item Value Reference Range Interpretation Comments POC-GLUCOSE METER 137 mg/dL 70-110 H : TESTED A T [facility] 6720 (ERIK) (test code = EMEKA LAZO PA, 1538) [address]: Manager Financial Services/Techni yari ID = [id number] for MESFIN KAPADIA EEG W VID 12-26 HR CONTINUOUS MONITORING (VEEG)2021-08-02 17:47:00Reason for exam:->seizures, currently altered [facility] : 1955 [facility] REPORT NAME: Jesús Pedersen DATE(s) OF TEST: 08/02/2021 DATE OF REPORT: 08/02/2021 EE ACC: [id number] Start time/date: 3:45 am, 08/02/2021 Stop time/date: 4:15 pm, 08/02/2021 ICD-10: R56.9 CPT Code: 41946 HISTORY: 66-year-old man with previous CVA with residual left hemiparesis who is being evaluated after a reported GTC. MEDICATIONS THAT COULD AFFECT EEG: levetiracetam, propofol TECHNICAL SUMMARY: [facility] with 32 input channels reviewed with bipolar and referential montages using the modified combinatorial system nomenclature. DESCRIPTION OF RECORD: During the maximally alert state, no posterior dominant rhythm was seen. The background primarily consisted of continuous, generalized 1-2 Hz polymorphic delta with superimposed faster beta activity. The background activity showed spontaneous variability, with epochs of increased myogenic artifacts and theta/alpha frequency activities were also noted posteriorly. No organized sleep architecture was not seen. INTERICTAL EPILEPTIFORM DISCHARGES: None. EVENTS/SEIZURES: None. HV: Hyperventilation was not done. PHOTIC STIMULATION: Photic stimulation was done from 1-30 Hz. Photic driving was not observed. There were no photop aroxysmal responses seen. ELECTROCARDIOGRAM EVENTS: Regular Sinus Rhythm. IMPRESSION: Abnormal video EEG in coma due to: Diffuse background slowing and disorganization, delta range with intermittent alpha/theta, reactive CLINICAL CORRELATION: This record is indicative of a moderate to severe degree of encephalopathy, which is non-specific in etiology. No clinical events were captured. There were no electrographic seizures or epileptiform discharges recorded. Qing Duff MD Neurophysiology Fellow I certify that I have reviewed the entire EEG, the fellow's draft report, made edits and agree with the fellow's conclusions. Matt Mckenzie MD, PhD Clinical Neurophysiolog y/Epilepsy Attending RAD, ABDOMEN/KUB, 1 VIEW [id number] 11:09:00Reason for exam:->NG tube location [facility] : 1955 Sex: MFINAL REPORT KUB History provided: NG tube evaluation NG tube tip is coiled within the fundus of the stomach. No bowel dilatation evident. Signed: Ahsan oJhns MDReport Verified Date/Time: 08/02/2021 11:09:58 Reading [facility]: [facility] Diagnostic [facility] Reading Room - [facility].310.12 URINALYSIS W/ REFLEX URINE [id number] 11:00:00 Test Item Value Reference Range Interpretation Comments COLOR (BEAKER) (test code = 470) Yellow CLARITY (BEAKER) (test code = 469) Hazy SPECIFIC GRAVITY UA (BEAKER) (test 1.015 1.001-1.035 code = 468) PH UA (BEAKER) (test code = 467) 5.5 5.0-8.0 PROTEIN UA (BEAKER) (test code = 20 mg/dL Negative A 464) GLUCOSE UA (BEAKER) (test code = Negative Negative 365) KETONES UA (BEAKER) (test code = Negative Negative 371) BILIRUBIN UA (BEAKER) (test code = Negative Negative 462) BLOOD UA (BEAKER) (test code = Large Negative A 461) NITRITE UA (BEAKER) (test code = Negative Negative 465) LEUKOCYTE ESTERASE UA (BEAKER) Moderate Negative A (test code = 466) UROBILINOGEN UA (BEAKER) (test 0.2 mg/dL 0.2-1.0 code = 463) RBC UA (BEAKER) (test code = 519) 100 /HPF WBC UA (BEAKER) (test code = 520) 17 /HPF BACTERIA (BEAKER) (test code = None Seen 517) MUCUS (BEAKER) (test code = 1574) Rare SQUAMOUS EPITHELIAL (BEAKER) (test 7 /HPF code = 516) CRYSTALS, URINE (BEAKER) (test None Seen code = 1521) URIC ACID CRYSTALS (BEAKER) (test Occasional code = 1583) SOURCE(BEAKER) (test code = 2795) Manager Financial Services ID - [auto]Manager Financial Services ID - techLACTIC ACID, [id number] 09:55:30 Test Item Value Reference Range Interpretation Comments LACTATE BLOOD VENOUS 2.89 mmol/L 0.50-2.20 H Specime n moderately (2) (BEAKER) (test hemolyzed code = 5858) Manager Financial Services ID - FANNIE GBLOOD GAS, [id number] 09:20:26 Test Item Value Reference Range Interpretation Comments PH ARTERIAL (BEAKER) (test code = 7.38 7.35-7.45 383) PCO2 ARTERIAL (BEAKER) (test code 37 mm Hg 35-45 = 384) PO2 ARTERIAL (BEAKER) (test code 166 mm Hg 80-90 H = 385) O2 SATURATION ARTERIAL (BEAKER) 99.0 % 96.0-97.0 H (test code = 386) HCO3 ARTERIAL (BEAKER) (test code 21 mmol/L 21-29 = 388) BASE EXCESS ARTERIAL (BEAKER) -2.8 mmol/L -2.0-3.0 L (test code = 387) PATIENT TEMPERATURE (BEAKER) 39.0 (test code = 1818) FIO2 (BEAKER) (test code = 1819) 40.0 HEMOGLOBIN [id number] 08:39:50 Test Item Value Reference Range Interpretation Comments HEMOGLOBIN A1C (BEAKER) (test code = 6.0 % 4.3-6.1 368) POCT-GLUCOSE [id number] 06:05:09 Test Item Value Reference Range Interpretation Comments POC-GLUCOSE METER 157 mg/dL 70-110 H : TESTED A T [facility] 6720 (BEAKER) (test code = EMEKA LAZO PA, 1538) [address]: Manager Financial Services/Techni yari ID = [id number] for Carola Gustafson VITAMIN B12 AND [id number] 03:48:27 Test Item Value Reference Range Interpretation Comments VITAMIN B12 251 pg/mL 213-816 (BEAKER) (test code = 774) FOLATE (BEAKER) 10.40 ng/mL See_Comment [Automated message] (test code = 362) The system which generated this result transmitted ref erence range: >=7.00. The reference range was not used to interpr et this result as normal/abnormal . Manager Financial Services ID - FANNIE GTSH/FREE T4 IF [id number] 03:48:26 Test Item Value Reference Range Interpretation Comments THYROID STIMULATING HORMONE 0.565 uIU/mL 0.350-4.940 (BEAKER) (test code = 772) Manager Financial Services ID - FANNIE GRAPID DRUG SCREEN, [id number] 03:41:43 Test Item Value Reference Range Interpretation Comments BARBITURATE URINE (BEAKER) (test Negative Negative code = 725) BENZODIAZEPINE SCREEN URINE (BEAKER) Positive Negative A (test code = 726) COCAINE (METAB.) SCREEN (BEAKER) Negative Negative (test code = 1164) METHADONE SCREEN (BEAKER) (test code Negative Negative = 1436) OPIATE SCREEN URINE (BEAKER) (test Negative Negative code = 734) CANNABINOID SCREEN URINE (BEAKER) Negative Negative (test code = 727) AMPH/METHAMPH SCREEN (BEAKER) (test Negative Negative code = 1438) PHENCYCLIDINE SCREEN URINE (BEAKER) Negative Negative (test code = 608) PH UA (BEAKER) (test code = 467) 5.5 5.0-8.0 DRUG CUTOFF CONC.Cocaine 300 ng/mL Cannabinoid 50 ng/mLBenzodiazepine 200 ng/mLBarbiturate 200 ng/mLPhencyclidine 25 ng/mLOpiate 300 ng/mLMethadone 300 ng/mLAmphetamine/ 1000 ng/mL MethamphetamineThis assay provides an unconfirmed qualitative test result for the clinical management of patients in emergency situations. Chain of custody not maintained. Some ydqz-zib-jwmpyto medications, as well as adulterants, may cause inaccurate results. Clinical correlation should be applied. A more comprehensivedrug screen or confirmation of a detected drug may be performed upon request.Manager Financial Services ID - [auto]Manager Financial Services ID - DBLIPID [id number] 03:14:58 Test Item Value Reference Range Interpretation Comments TRIGLYCERIDES (BEAKER) (test code = 70 mg/dL 540) CHOLESTEROL (BEAKER) (test code = 100 mg/dL 631) HDL CHOLESTEROL (BEAKER) (test code 41 mg/dL = 976) LDL CHOLESTEROL CALCULATED (BEAKER) 45 mg/dL (test code = 633) Triglyceride Reference Range: Low Risk <150 Borderline 150-199 High Risk 200-499 Very High Risk >=500Cholesterol Reference Range: Low Risk <200 Borderline 200-239 High Risk >240HDL Cholesterol Reference Range: Low Risk >=60 High Risk <40LDL Cholesterol Reference Range: Optimal <100 Near Optimal 100-129 Borderline 130-159 High 160-189 Very High >=190 Manager Financial Services ID - [id number] 03:14:57 Test Item Value Reference Range Interpretation Comments PHOSPHORUS (BEAKER) (test code = 2.3 mg/dL 2.3-4.7 604) Manager Financial Services ID Galdino GRECO [id number] 03:14:57 Test Item Value Reference Range Interpretation Comments MAGNESIUM (BEAKER) (test code = 1.9 mg/dL 1.6-2.6 627) Manager Financial Services ID - FANNIE GCOMPREHENSIVE METABOLIC [id number] 03:14:56 Test Item Value Reference Range Interpretation Comments TOTAL PROTEIN 6.9 gm/dL 6.0-8.3 (BEAKER) (test code = 770) ALBUMIN (BEAKER) 4.0 g/dL 3.5-5.0 (test code = 1145) ALKALINE PHOSPHATASE 71 U/L 40-150 (BEAKER) (test code = 346) BILIRUBIN TOTAL 0.7 mg/dL 0.2-1.2 (BEAKER) (test code = 377) SODIUM (BEAKER) (test 142 meq/L 136-145 code = 381) POTASSIUM (BEAKER) 4.1 meq/L 3.5-5.1 (test code = 379) CHLORIDE (BEAKER) 111 meq/L 98-107 H (test code = 382) CO2 (BEAKER) (test 20 meq/L 22-29 L code = 355) BLOOD UREA NITROGEN 15 mg/dL 7-21 (BEAKER) (test code = 354) CREATININE (BEAKER) 1.10 mg/dL 0.57-1.25 (test code = 358) GLUCOSE RANDOM 153 mg/dL 70-105 H (BEAKER) (test code = 652) CALCIUM (BEAKER) 8.8 mg/dL 8.4-10.2 (test code = 697) AST (SGOT) (BEAKER) 32 U/L 5-34 (test code = 353) ALT (SGPT) (BEAKER) 23 U/L 6-55 (test code = 347) EGFR (BEAKER) (test 67 mL/min/1.73 ESTIMA RIA GFR IS code = 1092) sq m NOT ACCURATE CREATININE CLEARANCE IN PREDICTING GLOMERULAR FILTRATION RATE . ESTIMATED GFR I S NOT APPLICABLE FOR DIALYSIS PATIEN TS. Manager Financial Services ID - FANNIE GCBC W/PLT COUNT & AUTO [id number] 03:04:29 Test Item Value Reference Range Interpretation Comments WHITE BLOOD CELL COUNT (BEAKER) 18.5 K/ L 3.5-10.5 H (test code = 775) RED BLOOD CELL COUNT (BEAKER) 4.86 M/ L 4.63-6.08 (test code = 761) HEMOGLOBIN (BEAKER) (test code = 13.9 GM/DL 13.7-17.5 410) HEMATOCRIT (BEAKER) (test code = 42.1 % 40.1-51.0 411) MEAN CORPUSCULAR VOLUME (BEAKER) 86.6 fL 79.0-92.2 (test code = 753) MEAN CORPUSCULAR HEMOGLOBIN 28.6 pg 25.7-32.2 (BEAKER) (test code = 751) MEAN CORPUSCULAR HEMOGLOBIN CONC 33.0 GM/DL 32.3-36.5 (BEAKER) (test code = 752) RED CELL DISTRIBUTION WIDTH 13.2 % 11.6-14.4 (BEAKER) (test code = 412) PLATELET COUNT (BEAKER) (test 201 K/CU MM 150-450 code = 756) MEAN PLATELET VOLUME (BEAKER) 11.2 fL 9.4-12.4 (test code = 754) NUCLEATED RED BLOOD CELLS 0 /100 WBC 0-0 (BEAKER) (test code = 413) NEUTROPHILS RELATIVE PERCENT 85 % (BEAKER) (test code = 429) LYMPHOCYTES RELATIVE PERCENT 6 % (BEAKER) (test code = 430) MONOCYTES RELATIVE PERCENT 8 % (BEAKER) (test code = 431) EOSINOPHILS RELATIVE PERCENT 0 % (BEAKER) (test code = 432) BASOPHILS RELATIVE PERCENT 0 % (BEAKER) (test code = 437) NEUTROPHILS ABSOLUTE COUNT 15.78 K/ L 1.78-5.38 H (BEAKER) (test code = 670) LYMPHOCYTES ABSOLUTE COUNT 1.03 K/ L 1.32-3.57 L (BEAKER) (test code = 414) MONOCYTES ABSOLUTE COUNT (BEAKER) 1.49 K/ L 0.30-0.82 H (test code = 415) EOSINOPHILS ABSOLUTE COUNT 0.02 K/ L 0.04-0.54 L (BEAKER) (test code = 416) BASOPHILS ABSOLUTE COUNT (BEAKER) 0.05 K/ L 0.01-0.08 (test code = 417) IMMATURE GRANULOCYTES-RELATIVE 1 % 0-1 PERCENT (BEAKER) (test code = 2801) BLOOD GAS, [id number] 02:48:47 Test Item Value Reference Range Interpretation Comments PH ARTERIAL (BEAKER) (test code = 7.36 7.35-7.45 383) PCO2 ARTERIAL (BEAKER) (test code 40 mm Hg 35-45 = 384) PO2 ARTERIAL (BEAKER) (test code 145 mm Hg 80-90 H = 385) O2 SATURATION ARTERIAL (BEAKER) 98.7 % 96.0-97.0 H (test code = 386) HCO3 ARTERIAL (BEAKER) (test code 22 mmol/L 21-29 = 388) BASE EXCESS ARTERIAL (BEAKER) -3.0 mmol/L -2.0-3.0 L (test code = 387) PATIENT TEMPERATURE (BEAKER) 37.5 (test code = 1818) FIO2 (BEAKER) (test code = 1819) 60.0
== END 2021-08-02 00:11 | disposition short-term general hospital (02) ==
LOC: ER 19:23
DX: J96.00 Acute respiratory failure, unspecified whether with hypoxia or hypercapnia (principal); I10 Essential (primary) hypertension; Z20.822 Contact with and (suspected) exposure to COVID-19; Z88.5 Allergy status to narcotic agent; Z86.73 Personal history of transient ischemic attack (TIA), and cerebral infarction without residual deficits
CPT/HCPCS: 93005; 87040 ×2; 85025; 80048; 36415; 80320; 83735; 80329 ×2; 85610; 82947; 80076; 85730; 81003; 84484; 83880; 80307; 70450; 72125; 71045 ×2; 82805; 51702; 99291; U0003; J2250 ×4; J3010 ×2; J1953; J7030; J2405; J0692

== ENCOUNTER 2022-05-27 10:13 | Day surgery (SDC) | payer MEDICARE, OTHER ==
--- NOTE | 2022-05-23 14:46 | RAD REPORT ---
EXAM DESCRIPTION: RAD - Chest Pa And Lat (2 Views) - 05/23/2022 2:26 pm CLINICAL HISTORY: Pre op pending space oar gel insertion Chest pain. COMPARISON: Chest Single View dated 08/01/2021; Chest Single View dated 08/01/2021; Chest Single Vie w dated 03/04/2021; Chest Single View dated 03/02/2021 FINDINGS: The lungs are clear. The heart is upper limit of normal in size. No displaced fractures. IMPRESSION: No acute or concerning finding suspected.
[2022-05-23 15:03] LABS: Absolute Lymphocytes (CBC) 1.7 K/uL (0.7-4.9); Hematocrit 41.3 % (39.6-49.0); Lymphocytes % 20.3 % (15.3-44.8); MCV 86.4 fL (80-100); MPV 9.4 fL (7.6-11.3); RBC Red Blood Cell Count 4.78 M/uL (4.33-5.43)
[2022-05-23 15:09] LABS: Protime INR 1.09
[2022-05-23 15:16] LABS: Potassium 3.8 mmol/L (3.5-5.1)
[2022-05-23 15:26] LABS: Specific Gravity 1.028 (1.005-1.030); Urine Bilirubin NEGATIVE (Negative); Urine Blood Negative (Negative); Urine Clarity Clear (Clear); Urine Color Dark-Yellow (Yellow); Urine Glucose NEGATIVE (Negative); Urine Mucus 2+ /HPF (None Seen); Urine Protein 1+ (Negative); Urine RBC <5 /HPF (None Seen); Urine Urobilinogen Normal (Normal); Urine pH 5.5 (5.0-7.0)
[2022-05-23 15:37] LABS: SARS-CoV-2 Antigen Rapid Res Negative (Negative)
[2022-05-27] MEDS ORDERED: Ringers Lactate 1,000 ML IV ONE (10:55)
[2022-05-27] MEDS ORDERED: CEFAZOLIN 2 GM IN 0.9% NACL 2 GM/100 ML BAG ONE (10:56)
--- NOTE | 2022-05-27 14:38 | EKG ---
Test Date: 2022-05-23 Test Time: 14:10:19 Equipment Inspector: B MEASUREMENT RESULTS: Intervals: Rate: 62 [place]: 192 QRSD: 150 QT: 440 QTc: 446 [place]: P: -2 [place]: 192 QRS: -11 T: -6 INTERPRETIVE STATEMENTS: Sinus rhythm with fusion complexes Right bundle branch block Minimal voltage criteria for LVH, may be normal variant Inferior infarct, age undetermined Abnormal ECG Compared to ECG 08/01/2021 19:25:11 Fusion complex(es) now present Left ventricular hypertrophy now present Sinus tachycardia no longer present Myocardial infarct finding still present Electronically Signed On 05-27-22 14:33:18 CDT by Jayesh Marie
[2022-05-27] MEDS ORDERED: LIDOCAINE 1% MPF 5 ML VIAL ONE (15:42)
[2022-05-27] MEDS ORDERED: propofoL 200 MG/20 ML VIAL IV ONE (15:42)
[2022-05-27] MEDS ORDERED: FENTANYL CITR 100 MCG/2 ML ONE (15:42)
[2022-05-27] MEDS ORDERED: ONDANSETRON 4 MG/2 ML VIAL ONE (15:43)
[2022-05-27] MEDS ORDERED: MIDAZOLAM HCL 2 MG/2 ML INJ ONE (15:44)
[2022-05-27 18:13] VITALS: BP 162/92; TEMP 97; O2SAT 100
--- NOTE | 2022-05-28 08:04 | OP ---
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 2.History of cerebrovascular accident, on Plavix. Postoperative Diagnoses: 1.Unfavorable intermediate risk prostate cancer. 2.History of cerebrovascular accident, on Plavix. Procedures: 1.Transrectal ultrasound guidance for fiducial marker placements. Two fiducial markers were placed. 2.Transrectal ultrasound guidance for SpaceOAR gel insertion. Indication For Procedure: Mr. Pedersen is a 67-year-old gentleman with hypertension and history of st roke on 2 occasions in December and January 2021 with resultant left-sided hemiparesis, who is treated on as pirin and Plavix, now significantly recovered, but status post TURP 5 years ago and bilateral inguina l hernia repairs with mesh with a somewhat enlarged prostate and elevated PSA of 5.7, status post pro state biopsy on 05/29/2021 revealing a 50 g gland and Independence 3 + 4 adenocarcinoma of the prostate. He had a hard time deciding on treatment and thus presented in followup many months later, after us h aving to track him down and subsequently needed a restaging prostate biopsy this time revealing a Gle ason 4 + 3 adenocarcinoma of the prostate consistent with unfavorable intermediate risk prostate canc er. As a result, he was counseled and ultimately elected to proceed with radiation therapy and fiduc ial markers and SpaceOAR gel was requested to be inserted in addition to the administration of androg en deprivation therapy. Procedure In Detail: The patient was consented in the preoperative holding area before being transfe rred to the operative suite where general anesthesia was induced. Of note, despite preoperatively be ing reminded to hold both his aspirin and Plavix for 5 days prior to surgery, the patient neglected t o hold it appropriately and took it within the last 2 days. As a result, I counseled him extensively about the potential increased risk of bleeding or development of a hematoma. He elected to proceed as I assess that the overall risk was relatively low. He was then transferred to the operative suite where general anesthesia was induced and Ancef was giv en for IV antimicrobial prophylaxis. Pneumoboots were provided for DVT prophylaxis. He was placed i n the high lithotomy position, padded and secured to the table appropriately. His genitalia were kehinde vated out of the perineal region using an Ioban drape, and Betadine was applied. The transrectal ult rasound probe was inserted into his rectum and the prostate was visualized in both axial as well as s agittal dimensions. I began the case by inserting a fiducial marker in the left anterior mid gland o f the prostate. An additional fiducial marker was placed transperineally into the right apical porti on of the prostate. I then utilized the SpaceOAR injector needle with the bevel turned down, inserte d into the Denonvillier's space, bypassing the rectal hump at the anal verge and successfully navigat ing into the region of the mid prostate. A puff of saline was injected and did hydro dissect into th at space and aspiration confirmed the absence of blood to indicate the absence of intravascular injur y. I then utilized the SpaceOAR injection solution mixture, which was then injected and did create a nice space between the prostate and the rectum from the base to the apex as identified under ultraso und visualization. I then removed the needle and applied a gentle amount of pressure for a small ooz e of blood from the puncture site in the skin. He was then taken out of the lithotomy position, awak ened from general anesthesia, transferred to a stretcher, and then transferred to the recovery room i n good condition. Complications: None. Discharge Disposition: He should follow up in the [facility] for the next injection of Eligard i n the treatment of his prostate cancer via androgen deprivation therapy. He should follow up with Dr Milly Ge to initiate the radiation therapy treatment. NICOLA/SHIRLEY Voice ID: [id number] Report ID: [id number]
== END 2022-05-27 17:40 | disposition home or self-care (01) ==
LOC: OR 10:13
PROVIDERS: ATTEND Urology
PROC: 0VH43YZ Insertion of Other Device into Prostate and Seminal Vesicles, Percutaneous Approach (ICD-10-PCS; principal; 2022-05-27 12:15)
DX: C61 Malignant neoplasm of prostate (principal); I10 Essential (primary) hypertension; Z86.73 Personal history of transient ischemic attack (TIA), and cerebral infarction without residual deficits; I69.354 Hemiplegia and hemiparesis following cerebral infarction affecting left non-dominant side; Z20.822 Contact with and (suspected) exposure to COVID-19
CPT/HCPCS: 36415; 71046; 80048; 81001; 85025; 85610; 87811; 93005; J0690; J2001; J2250; J2405; J2704; J3010; J7120